=== PATIENT | female | born 1940 | race Caucasian/White ===

== ENCOUNTER → 2016-04-06 | Outpatient (CLI) | payer MEDICARE, BC ==
[~2016-04-06] MED LIST: 00186-0372-20 IH; ACTONEL 35MG TA35 MG PO; ADVAIR 100/28 DISKU1 IH; ALLEGRA 180MG180 MG PO; ALLOPURINOL300 MG PO; ASPIRIN 81M81 MG/TA2 PO; ASTELIN NASAL S34 ML NS; ASTELIN137 MCG/AC NS; CALCIUM 500 W/V1 TAB PO; CEFTIN500 MG PO; CLARITIN 1010 MG/TAB PO; COLACE 100100 MG/CAP PO; DEEP SEA 45 ML45 ML NS; DILAUDID 2MG TAB2 MG PO; DULCOLAX PO; DULERA1 AR1 IH; DURAGESIC50 MCG/PAT TD; FENTANYL 75MCG TD; FENTANYL 75MCG TOP; FOSAMAX 70MG TA70 MG PO; HCTZ 25MG25 MG PO; IPRATROPIUM BROM3 M1 IH; KLONOPIN0.5 MG PO; LASIX40 MG PO; LEXAPRO10 MG PO; LOTENSIN 1010 MG/TAB PO; LOTREL 5 MG-201 CAP PO; MAGNESIUM250 M1 PO; MULTIPLE VITAMI1 CAP PO; NEURONTIN300 MG PO; NEURONTIN600 MG/TAB PO; NEXIUM 40MG40 MG PEG; NUVIGIL50 MG PO; OMEGA 31000 MG PO; POTASSIUM CH2 MEQ/ML PO; PRAVACHOL 20MG20 MG PO; PRAVACHOL40 MG PO; PROVIGIL100 MG PO; REGLAN 10MG10 MG/TAB PO; REGLAN 5MG T5 MG/TAB PO; SALINE NASAL SP45 ML NS; SINGULAIR10 MG PO; TOPROL XL50 MG PO; TYLENOL 325MG325 MG PO; VANIQA 13.9% TP; VITAMIN D31000 IU PO; VITAMINC1000TA PO; ZITHROMAX 250M250 MG PO; [UNRECOGNIZED DRUG - REMARK] TOP
== END ==
LOC: MC.RAD 14:40
DX: Z12.31 Encounter for screening mammogram for malignant neoplasm of breast (principal)

== ENCOUNTER → 2017-04-09 | Outpatient (CLI) | payer MEDICARE, BC | LOC: MC.RAD 15:00 | DX: Z12.31 Encounter for screening mammogram for malignant neoplasm of breast (principal); R92.8 Other abnormal and inconclusive findings on diagnostic imaging of breast ==

== ENCOUNTER → 2017-04-13 | Outpatient (CLI) | payer MEDICARE, BC | LOC: MC.RAD 14:00 | DX: N64.89 Other specified disorders of breast (principal) ==

== ENCOUNTER → 2017-04-18 | Outpatient (CLI) | payer MEDICARE, BC | LOC: MC.RAD 06:50 | DX: N63.20 Unspecified lump in the left breast, unspecified quadrant (principal); R92.0 Mammographic microcalcification found on diagnostic imaging of breast; Z98.82 Breast implant status ==

== ENCOUNTER → 2017-05-15 | Day surgery (SDC) | payer MEDICARE, BC ==
[~2017-05-15] VITALS: Ht 154.9 cm; Wt 103.2 kg
[~2017-05-15] MED LIST changes: +ACTONEL30 MG PO; +AYR BABY SALINE30 ML NS; +BIOTENE ORALBAL42 GM MM; +CALCIUM 600MG+D1 TAB PO; +FENTANYL 50MCG TD; +FIBER CHOICE1 CTB PO; +HCTZ 25MG TAB25 MG PO; +K-DUR20 MEQ PO; +KLONOPIN 0.5MG0.5 MG PO; +LASIX 20MG TABL20 MG PO; +LEXAPRO 10MG10 MG PO; +LOTREL 5/20 CAP1 CAP PO; +MIRALAX PA17 GM/Dose PO; +PRAVACHOL 40MG40 MG PO; +PROVIGIL 100MG100 MG PO; +SALINE 45 ML45 ML NS; +SINGULAIR 110 MG/TAB PO; +SYSTANE GEL EYE10 ML OP; +TOPROL XL 25MG25 MG PO; +TYLENOL 8 HR PO; +VITAMIN C500 MG PO; +VITAMIN D31000 I1 PO; +ZYLOPRIM 300MG300 MG PO
[2017-05-15 10:14] VITALS: BP 114/65; PULSE 91; TEMP 97.8
[2017-05-15 16:31] VITALS: BP 123/64; PULSE 89
[2017-05-15 16:46] VITALS: BP 128/66; PULSE 83
[2017-05-15 17:16] VITALS: BP 116/65; PULSE 90
[2017-05-15 17:31] VITALS: BP 121/84; PULSE 98
[2017-05-15 18:45] VITALS: BP 134/79; PULSE 89; TEMP 97.3
== END ==
LOC: SDCO 06:58
DX: C50.112 Malignant neoplasm of central portion of left female breast (principal); I10 Essential (primary) hypertension; K21.9 Gastro-esophageal reflux disease without esophagitis; H40.9 Unspecified glaucoma; M85.80 Other specified disorders of bone density and structure, unspecified site; G47.30 Sleep apnea, unspecified; M48.00 Spinal stenosis, site unspecified; M79.7 Fibromyalgia; Z88.1 Allergy status to other antibiotic agents; Z88.8 Allergy status to other drugs, medicaments and biological substances; J45.909 Unspecified asthma, uncomplicated; Z96.652 Presence of left artificial knee joint; M62.81 Muscle weakness (generalized); B91 Sequelae of poliomyelitis; M10.9 Gout, unspecified
CPT/HCPCS: A9541; J0690; J1100; J1885; J2405; J2704; J3010; J7120; Q9968

== ENCOUNTER → 2017-06-14 | Outpatient (CLI) | payer MEDICARE, BC ==
[~2017-06-14] MED LIST changes: +BREO IH
== END ==
LOC: COL.VAS 15:09
DX: I25.3 Aneurysm of heart (principal); I34.0 Nonrheumatic mitral (valve) insufficiency; I37.1 Nonrheumatic pulmonary valve insufficiency; I48.2 Chronic atrial fibrillation

== ENCOUNTER → 2017-09-13 | Outpatient (CLI) | payer MEDICARE, BC | LOC: COL.RAD 13:00 | DX: M18.0 Bilateral primary osteoarthritis of first carpometacarpal joints (principal); M25.531 Pain in right wrist | CPT/HCPCS: J3301; Q9967 ==

== ENCOUNTER 2017-09-19 09:07 | Day surgery (SDC) | payer MEDICARE, BC ==
[~2017-09-19] VITALS: Ht 154.9 cm; Wt 103.0 kg
[~2017-09-19 09:07] MED LIST changes: -FENTANYL 50MCG TD; -LASIX 20MG TABL20 MG PO; +LASIX 40MG TABL40 MG PO; -LEXAPRO 10MG10 MG PO; +LEXAPRO20 MG PO
[2017-09-19 09:28] LABS: HEMATOCRIT 42.1 % (37.0-47.0); HEMOGLOBIN 14.3 g/dl (12.5-16.0); MEAN CELL VOLUME 99 fl (80.0-100.0); MEAN CORPUSCULAR HEMOGLOBIN 34 pg (27.0-31.0); MEAN CORPUSCULAR HGB CONC 34 g/dl (33.0-37.0); MEAN PLATELET VOLUME 9.4 fl (7.4-10.4); PLATELET COUNT 182 K/mm3 (130-400); RED BLOOD COUNT 4.25 M/mm3 (4.10-5.30); REDCELL DISTRIBUTION WIDTH-CV 13.4 % (11.5-14.5)
[2017-09-19 09:39] LABS: PROTHROMBIN TIME 22.9 SECONDS (9.7-12.8)
[2017-09-19 09:57] LABS: CALCIUM 9.4 mg/dL (8.4-10.2); CREATININE, serum 0.72 mg/dL (0.52-1.25); POTASSIUM 4.2 mmol/L (3.4-5.0)
[2017-09-19] MEDS ORDERED: XARELTO20 MG PO (10:08)
[2017-09-19] MEDS ORDERED: ZYLOPRIM 300MG300 MG PO (10:14)
[2017-09-19 10:50] VITALS: BP 106/61; PULSE 46
[2017-09-19 11:05] VITALS: BP 108/60; PULSE 45
[2017-09-19] MEDS ORDERED: TOPROL XL 25MG25 MG PO (11:05)
[2017-09-19 11:20] VITALS: BP 107/58; PULSE 43
[2017-09-19 11:35] VITALS: BP 113/59; PULSE 42
[2017-09-19 12:00] VITALS: BP 101/58; PULSE 43
== END 2017-09-19 12:35 | disposition home or self-care (01) ==
LOC: COL.CAR 09:07
PROVIDERS: Internal Medicine Cardiovascular Disease
DX: I48.0 Paroxysmal atrial fibrillation (principal); I10 Essential (primary) hypertension; K21.9 Gastro-esophageal reflux disease without esophagitis; G47.33 Obstructive sleep apnea (adult) (pediatric); J45.909 Unspecified asthma, uncomplicated; M19.90 Unspecified osteoarthritis, unspecified site; M79.7 Fibromyalgia; G89.29 Other chronic pain; Z88.1 Allergy status to other antibiotic agents; Z85.3 Personal history of malignant neoplasm of breast
CPT/HCPCS: J2704; J3010; J7030

== ENCOUNTER 2017-10-05 07:01 | Day surgery (SDC) | payer MEDICARE, BC ==
[2017-10-05] VITALS (13 sets, daily range): BP systolic 113–146; BP diastolic 58–105; PULSE 75–93; TEMP 97.5
[~2017-10-05] VITALS: Ht 155 cm; Wt 102.2 kg
[~2017-10-05 07:01] MED LIST changes: +XARELTO20 MG PO
[2017-10-05 08:16] LABS: HEMATOCRIT 41.8 % (37.0-47.0); HEMOGLOBIN 13.8 g/dl (12.5-16.0); MEAN CELL VOLUME 103 fl (80.0-100.0); MEAN CORPUSCULAR HEMOGLOBIN 34 pg (27.0-31.0); MEAN CORPUSCULAR HGB CONC 33 g/dl (33.0-37.0); MEAN PLATELET VOLUME 9.8 fl (7.4-10.4); PLATELET COUNT 178 K/mm3 (130-400); RED BLOOD COUNT 4.07 M/mm3 (4.10-5.30); REDCELL DISTRIBUTION WIDTH-CV 13.1 % (11.5-14.5)
[2017-10-05 08:20] LABS: INR 1.1 (0.8-3.0); PROTHROMBIN TIME 12.7 SECONDS (9.7-12.8)
[2017-10-05 08:26] LABS: CALCIUM 9.4 mg/dL (8.4-10.2); CREATININE, serum 0.79 mg/dL (0.52-1.25); POTASSIUM 3.8 mmol/L (3.4-5.0)
[2017-10-05] MEDS ORDERED: TOPROL XL 25MG25 MG PO (08:59)
[2017-10-05] MEDS ORDERED: ASPIRIN 81M81 MG/TA2 PO (09:10)
[2017-10-05] MEDS ORDERED: ARIMIDEX1 MG PO (09:11)
== END 2017-10-05 16:30 | disposition home or self-care (01) ==
LOC: COL.CAR 07:01
PROVIDERS: Internal Medicine Cardiovascular Disease
DX: I25.10 Atherosclerotic heart disease of native coronary artery without angina pectoris (principal); I48.0 Paroxysmal atrial fibrillation; I48.91 Unspecified atrial fibrillation; Z79.899 Other long term (current) drug therapy; I10 Essential (primary) hypertension; I08.1 Rheumatic disorders of both mitral and tricuspid valves; G47.33 Obstructive sleep apnea (adult) (pediatric); Z92.3 Personal history of irradiation; Z79.01 Long term (current) use of anticoagulants; Z79.82 Long term (current) use of aspirin; Z85.3 Personal history of malignant neoplasm of breast
CPT/HCPCS: J1644; J2250; J3010; Q9967

== ENCOUNTER 2017-11-13 07:05 | Day surgery (SDC) | payer MEDICARE, BC ==
[~2017-11-13] VITALS: Ht 155 cm; Wt 102.9 kg
[~2017-11-13 07:05] MED LIST changes: +ARIMIDEX1 MG PO
[2017-11-13 07:50] VITALS: BP 129/88; PULSE 82; TEMP 98
[2017-11-13 07:52] LABS: HEMATOCRIT 39.8 % (37.0-47.0); MEAN CELL VOLUME 102 fl (80.0-100.0); MEAN CORPUSCULAR HEMOGLOBIN 33 pg (27.0-31.0); MEAN CORPUSCULAR HGB CONC 33 g/dl (33.0-37.0); MEAN PLATELET VOLUME 9.3 fl (7.4-10.4); PLATELET COUNT 178 K/mm3 (130-400); RED BLOOD COUNT 3.91 M/mm3 (4.10-5.30); REDCELL DISTRIBUTION WIDTH-CV 13.3 % (11.5-14.5)
[2017-11-13 07:55] LABS: INR 3.5 (0.8-3.0); PROTHROMBIN TIME 39.3 SECONDS (9.7-12.8)
[2017-11-13 08:01] LABS: CALCIUM 9.2 mg/dL (8.4-10.2); CREATININE, serum 0.72 mg/dL (0.52-1.25); POTASSIUM 3.7 mmol/L (3.4-5.0)
[2017-11-13] MEDS ORDERED: TAMBOCOR50 MG PO (09:14)
[2017-11-13 09:30] VITALS: BP 120/68; PULSE 59; TEMP 98.4
[2017-11-13 09:53] VITALS: BP 118/62; PULSE 62; TEMP 98.4
== END 2017-11-13 11:00 | disposition home or self-care (01) ==
LOC: COL.CAR 07:05
PROVIDERS: Internal Medicine Cardiovascular Disease
DX: I48.91 Unspecified atrial fibrillation (principal); I10 Essential (primary) hypertension; K21.9 Gastro-esophageal reflux disease without esophagitis; G47.33 Obstructive sleep apnea (adult) (pediatric); I25.10 Atherosclerotic heart disease of native coronary artery without angina pectoris; J45.909 Unspecified asthma, uncomplicated; G89.29 Other chronic pain; M79.7 Fibromyalgia; F32.9 Major depressive disorder, single episode, unspecified; Z79.01 Long term (current) use of anticoagulants; Z96.652 Presence of left artificial knee joint; Z85.3 Personal history of malignant neoplasm of breast; Z82.49 Family history of ischemic heart disease and other diseases of the circulatory system; Z82.62 Family history of osteoporosis
CPT/HCPCS: J2704

== ENCOUNTER → 2018-02-21 | Outpatient (CLI) | payer MEDICARE, BC ==
[~2018-02-21] MED LIST changes: +TAMBOCOR50 MG PO
== END ==
LOC: COL.RAD 08:00
DX: M79.644 Pain in right finger(s) (principal)
CPT/HCPCS: J3301; Q9967

== ENCOUNTER 2018-04-16 12:34 | Inpatient (IN) | payer MEDICARE, BC ==
[~2018-04-16] VITALS: Ht 154.9 cm; Wt 98.1 kg
[2018-04-16 13:02] LABS: BASO % 0.3 % (0.0-2.0); EOS % 0.1 % (0-4.0); GRAN # 6.4 (1.4-6.5); GRAN % 79.7 % (42.2-75.2); HEMOGLOBIN 13.9 g/dl (12.5-16.0); LYMPH # 0.7 (1.2-3.4); LYMPH % 8.8 % (20.0-51.0); MEAN CELL VOLUME 101 fl (80.0-100.0); MEAN CORPUSCULAR HEMOGLOBIN 33 pg (27.0-31.0); MEAN CORPUSCULAR HGB CONC 33 g/dl (33.0-37.0); MEAN PLATELET VOLUME 9.7 fl (7.4-10.4); MONO # 0.9 (0.1-0.6); MONO % 10.7 % (1.7-9.3); PLATELET COUNT 137 K/mm3 (130-400); RED BLOOD COUNT 4.18 M/mm3 (4.10-5.30); REDCELL DISTRIBUTION WIDTH-CV 13.3 % (11.5-14.5)
[2018-04-16 13:13] LABS: ARTERIAL BLD GAS O2 SATURATION 91.8 % (92-100); ARTERIAL BLD GAS TCO2 CT 29.7; ARTERIAL BLOOD GAS BASE EXCESS 4.4 (-2-2); ARTERIAL BLOOD GAS HCO3 28.5 meq/L (22-26); ARTERIAL BLOOD GAS PCO2 40.4 mmHg (35-45); ARTERIAL BLOOD GAS PO2 62.1 mmHg (80-100); ARTERIAL BLOOD GAS pH 7.47 (7.35-7.45)
[2018-04-16 13:17] LABS: ALBUMIN 4.1 gm/dL (3.5-5.0); BILIRUBIN,TOTAL 0.7 mg/dL (0.0-1.0); CALCIUM 9.2 mg/dL (8.4-10.2); CREATININE, serum 0.77 mg/dL (0.52-1.25); POTASSIUM 3.4 mmol/L (3.4-5.0); TOTAL PROTEIN 7.5 gm/dL (6.4-8.2)
[2018-04-16 13:27] LABS: COLLECTION METHOD CLEAN CATCH
[2018-04-16 13:35] LABS: MUCOUS Present /lpf; PH 7 (5-8); SQUAMOUS EPITHELIAL 0-2 /hpf; URINE APPEARANCE Clear; URINE BACTERIA None Seen /hpf; URINE BILIRUBIN Negative (NEGATIVE); URINE BLOOD 2+ (NEGATIVE); URINE COLOR Yellow; URINE GLUCOSE Negative (NEGATIVE); URINE KETONE Trace (NEGATIVE); URINE LEUKOCYTE ESTERASE Negative (NEGATIVE); URINE NITRATE Negative (NEGATIVE); URINE PROTEIN(semi-quant) Negative (NEGATIVE); URINE RBC >50 /hpf; URINE UROBILINOGEN Negative (NEGATIVE)
[2018-04-16] MEDS ORDERED: PRIL40 PO (13:38)
--- NOTE | 2018-04-16 15:45 | NUR ---
Reported pt on BiPap dependent from RN and respiratory therapist Patience while in the ED. Arrived on 4L NC, SpO2:93-95%, and son escorted to waiting room, pt transvered via slideboard unable to assist in transfer. Pt alert to speech, oriented to:person, , family members present, location (hospital/ICU), [place], [place]; disoriented to time of day/month/year - answers that were answered correctly required extended period of time to answer - pt would drift off to sleep until restimulated with voiced repeated question. BiPap reapplied and previous settings per MD Emerita's order with RT present. and son now bedside, Droplet precuations/hand hygeine educated, verbally agrees to precautions, family are good historians of past medical history. Call light within reach, denies needs at this time
[2018-04-16 15:56] VITALS: BP 107/47; PULSE 57; TEMP 99.6
[2018-04-16 16:00] VITALS: BP 114/44; PULSE 48; TEMP 99.5
--- NOTE | 2018-04-16 17:39 | NUR ---
Pt able to consume crushed meds in applesauce without difficulty. Pt stating hunger, soup and crackers requested and ordered. Call light within reach. and son have departed.
--- NOTE | 2018-04-16 19:50 | NUR ---
Pt unable to stay awake falling asleep when asked "what year is it", "where are you", "what town are you in", "what state do you live in". Pt will open eyes to name is called, but immediately falls asleep again. Pt not able to eat due to inability to stay awake.
[2018-04-16 20:00] VITALS: BP 109/47; PULSE 47; TEMP 101
--- NOTE | 2018-04-16 22:50 | NUR ---
CONTACTED RT FOR EKG DUE AT 2736. SPOKE WITH RT NIK.
[2018-04-17] VITALS: BP 101/50; PULSE 87; TEMP 99.8
--- NOTE | 2018-04-17 02:15 | NUR ---
PT IS MORE QUICK TO ANSWER QUESTIONS. PT ABLE TO STATE LOCATION, PRESIDENT, & YEAR CORRECTLY, BUT TOOK THREE TRIES TO STATE THE CURRENT MONTH.
[2018-04-17 04:00] VITALS: BP 97/47; PULSE 53; TEMP 99.6
--- NOTE | 2018-04-17 05:50 | NUR ---
PT ALERT AND ORIENTED. PT NOT FALLING ASLEEP WHEN ASKED QUESTIONS AND ANSWERS ALL QUESTIONS SWIFTLY AND CORRECT.
[2018-04-17 06:44] LABS: BASO % 0.3 % (0.0-2.0); GRAN # 9.5 (1.4-6.5); GRAN % 81.5 % (42.2-75.2); HEMATOCRIT 38.2 % (37.0-47.0); HEMOGLOBIN 12.5 g/dl (12.5-16.0); LYMPH % 8.9 % (20.0-51.0); MEAN CELL VOLUME 103 fl (80.0-100.0); MEAN CORPUSCULAR HEMOGLOBIN 34 pg (27.0-31.0); MEAN CORPUSCULAR HGB CONC 33 g/dl (33.0-37.0); MEAN PLATELET VOLUME 10.2 fl (7.4-10.4); MONO % 8.6 % (1.7-9.3); PLATELET COUNT 114 K/mm3 (130-400); RED BLOOD COUNT 3.71 M/mm3 (4.10-5.30)
[2018-04-17 07:05] LABS: ALBUMIN 3.3 gm/dL (3.5-5.0); BILIRUBIN,TOTAL 0.7 mg/dL (0.0-1.0); CALCIUM 7.9 mg/dL (8.4-10.2); CREATININE, serum 1.14 mg/dL (0.52-1.25); POTASSIUM 3.4 mmol/L (3.4-5.0); TOTAL PROTEIN 6.1 gm/dL (6.4-8.2)
[2018-04-17 08:00] VITALS: BP 132/61; PULSE 81; TEMP 98.5
--- NOTE | 2018-04-17 09:17 | NUR ---
Pt AAOx4, much more alert than yesterday afternoon. Poli () called in - updated - will be here to visit around [id number]. Call light within reach, no complaints at this time. Builder Beam in room to assess pt
--- NOTE | 2018-04-17 09:58 | NUR ---
MANDEEP met with the patient to discuss discharge plan. The patient lives in [place] with her , Poli. She reports independence with ADLs and does not use any ambulatory devices. She states having nocturnal oxygen and a CPAP through [facility]. The patient's PCP is Dr. Jeff Gordon and she receives her medications at [facility]. She reports no difficulties obtaining her meds. PT/OT to be ordered. SW to continue to follow.
[2018-04-17 12:00] VITALS: BP 124/55; PULSE 99; TEMP 98.8
[2018-04-17 16:00] VITALS: BP 119/64; PULSE 101; TEMP 100.1
[2018-04-17 18:16] VITALS: TEMP 99.5
--- NOTE | 2018-04-17 20:30 | NUR ---
PT HAS SWELLING IN RIGHT HAND ALONG WITH BRUISING AT WRIST AND BACK OF HAND. BRUISING APPEARS TO BE FROM VENOUS PUNCTURES.
[2018-04-18] VITALS: BP 115/56; PULSE 74; TEMP 100.1
[2018-04-18 04:00] VITALS: BP 99/41; PULSE 62; TEMP 98.5
[2018-04-18 07:01] LABS: BASO % 0.2 % (0.0-2.0); EOS # 0.1 (0.0-0.7); EOS % 0.7 % (0-4.0); GRAN # 7.3 (1.4-6.5); GRAN % 81.4 % (42.2-75.2); HEMATOCRIT 32.4 % (37.0-47.0); HEMOGLOBIN 10.6 g/dl (12.5-16.0); LYMPH # 0.8 (1.2-3.4); LYMPH % 9.1 % (20.0-51.0); MEAN CELL VOLUME 104 fl (80.0-100.0); MEAN CORPUSCULAR HEMOGLOBIN 34 pg (27.0-31.0); MEAN CORPUSCULAR HGB CONC 33 g/dl (33.0-37.0); MONO # 0.7 (0.1-0.6); MONO % 8.2 % (1.7-9.3); PLATELET COUNT 102 K/mm3 (130-400); RED BLOOD COUNT 3.13 M/mm3 (4.10-5.30)
[2018-04-18 07:51] LABS: CALCIUM 7.9 mg/dL (8.4-10.2); CREATININE, serum 0.76 mg/dL (0.52-1.25); POTASSIUM 3.8 mmol/L (3.4-5.0)
[2018-04-18 08:00] VITALS: BP 135/80; PULSE 69; TEMP 99.2
--- NOTE | 2018-04-18 10:18 | NUR ---
The patient is to be transferred up to the floor today, 04/18. PT/OT are now in working with the patient. SW to continue to follow.
[2018-04-18 12:00] VITALS: BP 135/80; PULSE 69; TEMP 99.2
--- NOTE | 2018-04-18 14:35 | NUR ---
Report given to LYDIA Luciano
--- NOTE | 2018-04-18 16:22 | NUR ---
Patient arrived to floor at 1535 via wheelchair from ICU. Pt assisted to bathroom after arrival attempting to have a bowel movement. Did have small firm movement. Stark is draining dependently clear yellow urine. Heart is regular. Patient is alert and orientated, is at bedside. Lungs are noted to be coarse in the bilateral bases, does have expiratory wheezes to the upper lobes. Patient has scattered bruising noted to upper and lower extremities. Is noted to have a fentanyl patch to the right shoulder. Patient verbalizes she is tired. NS started at 75ml/hr. Call light, menu and phone is in reach.
[2018-04-18 16:30] VITALS: BP 138/75; PULSE 78; TEMP 98.9
--- NOTE | 2018-04-18 19:02 | NUR ---
Report received from LYDIA Hernandez. Denies needs. Eating dinner. Call light in reach.
[2018-04-18 19:47] VITALS: BP 136/57; PULSE 66; TEMP 98.2
--- NOTE | 2018-04-18 20:53 | NUR ---
Resting in bed with visitor at bedside. Assessment complete. Bilateral lower lobe crackles. Left upper lobe diminished. Right upper lobe clear. Heart sounds normal. Bowels active x4. Bilateral lower leg edema +1. SCD in place. IV in right AC positional. Wrapped and resting on pillow. NS at 75ml/hr infusing. Stark draining clear yellow urine. Free of kinks. Denies any pain. Denies needs at this time. Call light in reach.
--- NOTE | 2018-04-18 22:36 | NUR ---
Repositioned patient. Denies other needs at this time. Call light in reach.
[2018-04-19 00:21] VITALS: BP 141/71; PULSE 56; TEMP 97.5
--- NOTE | 2018-04-19 00:40 | NUR ---
Resting in bed. Denies needs. Call light in reach.
--- NOTE | 2018-04-19 03:30 | NUR ---
Resting in bed. Denies needs. call light in reach.
[2018-04-19 04:32] VITALS: BP 143/63; PULSE 57; TEMP 97.4
--- NOTE | 2018-04-19 06:19 | NUR ---
Uneventful night. Refused repositioning from side to side throughout night. Patient requested to be "pulled up" throughout night but remain flat. Resting in bed this AM. Denies any pain. Denies needs. Call light in reach.
[2018-04-19 07:05] VITALS: BP 146/62; PULSE 59; TEMP 97.3
--- NOTE | 2018-04-19 07:22 | NUR ---
Report given to LYDIA Belcher
[2018-04-19 07:24] LABS: BASO % 0.2 % (0.0-2.0); GRAN # 3.9 (1.4-6.5); GRAN % 80.5 % (42.2-75.2); HEMOGLOBIN 11.2 g/dl (12.5-16.0); LYMPH # 0.5 (1.2-3.4); LYMPH % 9.8 % (20.0-51.0); MEAN CELL VOLUME 103 fl (80.0-100.0); MEAN CORPUSCULAR HEMOGLOBIN 33 pg (27.0-31.0); MEAN CORPUSCULAR HGB CONC 32 g/dl (33.0-37.0); MEAN PLATELET VOLUME 9.9 fl (7.4-10.4); MONO # 0.4 (0.1-0.6); MONO % 9.1 % (1.7-9.3); PLATELET COUNT 97 K/mm3 (130-400); RED BLOOD COUNT 3.38 M/mm3 (4.10-5.30); REDCELL DISTRIBUTION WIDTH-CV 13.1 % (11.5-14.5)
[2018-04-19 07:37] LABS: CALCIUM 8.4 mg/dL (8.4-10.2); CREATININE, serum 0.51 mg/dL (0.52-1.25); MAGNESIUM 2.3 mg/dL (1.6-2.3); POTASSIUM 4.7 mmol/L (3.4-5.0)
[2018-04-19 07:54] LABS: HEMATOCRIT 34.8 % (37.0-47.0)
[2018-04-19 11:06] VITALS: BP 153/57; PULSE 58; TEMP 98.1
--- NOTE | 2018-04-19 11:17 | NUR ---
DISCUSSED WITH PATIENT POSSIBILITY OF D/C'ING PINTO CATHETER TO MINIMIZE RISK OF UTI. PT REQUESTS TO KEEP PINTO IN AT THIS TIME D/T PERSISTENT COUGHING CAUSING HER STRESS INCONTINENCE. AGREEABLE TO PLAN, I TOLD PATIENT WE WILL READDRESS LATER THIS EVENING.
--- NOTE | 2018-04-19 12:10 | NUR ---
PT BEING TRANSPORTED FOR CT VIA WHEELCHAIR BY AUTOMATIC PATTERN EDGER.
--- NOTE | 2018-04-19 14:03 | NUR ---
PT LYING IN BED, AT BEDSIDE. PT DENIES ANY NEEDS AT THIS TIME.
--- NOTE | 2018-04-19 15:47 | NUR ---
URINE IN PINTO CATHETER APPEARS SLIGHTLY PINK TINGED. PT THINKS SHE MAY HAVE IRRITATED THE CATHETER WHILE SHE WAS WASHING HER SAMIA AREA EARLIER TODAY.
[2018-04-19 16:35] VITALS: BP 166/60; PULSE 77; TEMP 98.4
--- NOTE | 2018-04-19 18:18 | NUR ---
Since this RN assumed pt care two hours ago, she has remained free of complaints, denies pain and SOB, oxygen remains at 2 L via NC, she ate a hearty dinner, call andree casillas visitor at bedside
--- NOTE | 2018-04-19 19:04 | NUR ---
INCREASE OXYGEN TO 2.5L NC DUE TO SATS <92%.
--- NOTE | 2018-04-19 19:05 | NUR ---
Report given to mercy FREEMAN, RT at pt bedside
[2018-04-19 19:27] VITALS: BP 148/51; PULSE 70; TEMP 98.5
--- NOTE | 2018-04-19 22:03 | NUR ---
Patient assessed at this time. Denies having pain and discomfort. LS wheezes in upper lobes, diminished in lower lobes. Denies having SOB and dyspnea. Respirations even and unlabored. On oxygen at 2 L/min via NC. Reports occasional cough with sputum production, but unable to observe sputum at this time. Assisted to the bathroom with one assist with use of gait belt. Gait steady. Voices no needs or concerns at this time. In bed at this time. Call light is within reach.
[2018-04-20] VITALS (7 sets, daily range): BP systolic 152–180; BP diastolic 59–83; PULSE 61–75; TEMP 98.2–98.8
--- NOTE | 2018-04-20 02:54 | NUR ---
Patient has denied pain and discomfort so far this shift. Did request that oxygen be increased when she put on her CPAP. Had been on oxygen at 2 L/min via NC, but reported that with her CPAP, she usually has oxygen supplemented at 4 L/min into CPAP. This nurse called and spoke with RT, and agreed that oxygen could be increased, and stated she would be in to see patient shortly afterwards. Patient resting in bed with eyes closed at this time. Call light is within reach.
--- NOTE | 2018-04-20 06:03 | NUR ---
Continues to have hematuria. Denies having flank and suprapubic pain and discomfort. Indwelling ying catheter patent. Securement device in place to right inner thigh. Draining via dependent drainage. Has been wearing CPAP tonight with 4 L/min of oxygen supplemented into it. Denies having SOB and dyspnea. Denies having any needs or concerns at this time. Call light is within reach. Continues on droplet precautions.
--- NOTE | 2018-04-20 07:17 | NUR ---
Report given to on-coming nurse.
[2018-04-20 08:11] LABS: HEMOGLOBIN 11.2 g/dl (12.5-16.0); MEAN CELL VOLUME 103 fl (80.0-100.0); MEAN CORPUSCULAR HEMOGLOBIN 33 pg (27.0-31.0); MEAN CORPUSCULAR HGB CONC 32 g/dl (33.0-37.0); MEAN PLATELET VOLUME 10.9 fl (7.4-10.4); PLATELET COUNT 120 K/mm3 (130-400)
[2018-04-20 08:13] LABS: HEMATOCRIT 34.9 % (37.0-47.0)
--- NOTE | 2018-04-20 08:30 | NUR ---
Assessment complete. Pt is AXO X3, denies having any pain at this time. Breathing is even but labored after repositioning in the bed on 2L via NC. Tele on. RA INT flushes easily, remains free of complications, and is CDI. Stark is draining red-tinged urine to DD. Pt is sitting up in the bed ordering breakfast at this time and she denies further needs. Call light within reach, will continue to monitor.
[2018-04-20 08:32] LABS: CALCIUM 8.7 mg/dL (8.4-10.2); CREATININE, serum 0.55 mg/dL (0.52-1.25)
[2018-04-20 09:51] LABS: BAND 3 % (0-10); BASOPHIL 1 % (0-2); LYMPHOCYTE 23 % (20.0-51.0); NEUTROPHILS 72 % (42.0-75.2); PLATELET ESTIMATE NORMAL (NORMAL)
--- NOTE | 2018-04-20 19:27 | NUR ---
Pt has been resting on and off throughout the day. She has remained free of pain. Pt is sitting up in the bed watching TV at this time and she denies further needs. Call light within reach. Report given to LYDIA Weber.
[2018-04-21] VITALS (502 sets, daily range): BP systolic 116–153; BP diastolic 55–65; PULSE 55–79; TEMP 97.8–98.4; O2SAT 83–97
--- NOTE | 2018-04-21 00:33 | NUR ---
Patient denies having pain and discomfort. LS CTA in upper lobes, diminished in lower lobes. Continues to have occasional cough, unable to produce any sputum. On oxygen at 5 L/min via NC. Wears CPAP at night. Denies having SOB and dyspnea, except with exertion. Indwelling ying catheter patent, and drainaing pink tinged, clear urine via dependent drainage. Voices no needs or concerns at this time. Resting in bed with eyes closed. Call light is within reach.
--- NOTE | 2018-04-21 05:03 | NUR ---
Voices no needs or concerns at this time. Denies having pain and discomfort. Resting in bed with eyes closed, and call light within reach. Denies having SOB and dyspnea. Has been wearing CPAP tonight.
--- NOTE | 2018-04-21 07:14 | NUR ---
Report given to next shift.
--- NOTE | 2018-04-21 09:30 | NUR ---
Assessment complete. Pt is AXO X3, denies having any pain at this time. Upon entering the room the pt states she feels SOB. O2 is 83% on 5L via NC. Luisa RT, called and at the bedside. Pt placed on high flow NC on 12L and O2 is 88%. Dr. Constantino notified and stated to place the pt on a BiPAP. Dr. Cuevas at the bedside. Stark is draining peach colored urine. Tele on. RA INT flushes easily, remains free of complications, and is CDI. Pt states she is feeling better after BiPAP is placed. Will continue to monitor.
[2018-04-21 10:17] LABS: ARTERIAL BLD GAS O2 SATURATION 92.4 % (92-100); ARTERIAL BLD GAS TCO2 CT 31.9; ARTERIAL BLOOD GAS BASE EXCESS 6.4 (-2-2); ARTERIAL BLOOD GAS HCO3 30.6 meq/L (22-26); ARTERIAL BLOOD GAS PCO2 42.2 mmHg (35-45); ARTERIAL BLOOD GAS PO2 64.1 mmHg (80-100); ARTERIAL BLOOD GAS pH 7.48 (7.35-7.45)
--- NOTE | 2018-04-21 11:30 | NUR ---
Dr. Constantino and Dr. Cuevas would like the pt to be transferred to the ICU. material handling crew supervisor notified and ICU 04 bed assigned.
--- NOTE | 2018-04-21 13:20 | NUR ---
PATIENT ARRIVED TO ICU ROOM 4 VIA BED FROM THE MEDICAL UNIT. SHE WAS SATURATED WITH URINE. PATIENT WAS CLEANED UP AND PLACED IN A NEW GOWN. HER VS ARE STABLE. SHE IS CURRENTLY ON BIPAP AT THIS TIME.
--- NOTE | 2018-04-21 13:39 | NUR ---
Pt transferred to ICU 04 via bed at this time. Report given to LYDIA Robertson.
--- NOTE | 2018-04-21 17:42 | NUR ---
PATIENT NOT TOLERATING BEING OFF OF BIPAP FOR EVEN A SHORT AMOUNT OF TIME. SHE IS CURRENTLY ON 14L OXYMASK AND SATURATIONS ARE 88%.
[2018-04-22] VITALS (778 sets, daily range): BP systolic 120–164; BP diastolic 53–78; PULSE 46–84; TEMP 98–98.6; O2SAT 67–100
[2018-04-22 05:30] LABS: HEMOGLOBIN 11.1 g/dl (12.5-16.0); MEAN CELL VOLUME 102 fl (80.0-100.0); MEAN CORPUSCULAR HEMOGLOBIN 33 pg (27.0-31.0); MEAN CORPUSCULAR HGB CONC 33 g/dl (33.0-37.0); PLATELET COUNT 154 K/mm3 (130-400); RED BLOOD COUNT 3.34 M/mm3 (4.10-5.30)
[2018-04-22 05:51] LABS: HEMATOCRIT 34.1 % (37.0-47.0)
[2018-04-22 07:23] LABS: BAND 12 % (0-10); EOSINOPHIL 1 % (0-4); LYMPHOCYTE 14 % (20.0-51.0); NEUTROPHILS 65 % (42.0-75.2)
--- NOTE | 2018-04-22 07:23 | NUR ---
RECEIVED REPORT FROM LYDIA MEADOWS. PATIENT WAS RESTING IN BED. MEDICATIONS AND LABS VARIFIED.
[2018-04-22 07:24] LABS: PLATELET ESTIMATE NORMAL (NORMAL)
[2018-04-22 07:25] LABS: CALCIUM 8.6 mg/dL (8.4-10.2); CREATININE, serum 0.63 mg/dL (0.52-1.25); POTASSIUM 3.1 mmol/L (3.4-5.0)
[2018-04-22 07:25] LABS: HYPOCHROMIA 1+
--- NOTE | 2018-04-22 13:51 | NUR ---
MANDEEP and SW student attended clinical rounding. talked with patient about getting up with PT/OT. She reports that she does well at home prior to this and lives with her . said PT and OT will come work with her tomorrow to evaluate patients discharge needs. MANDEEP will continue to follow.
--- NOTE | 2018-04-22 19:25 | NUR ---
GAVE REPORT TO LYDIA MEADOWS.
--- NOTE | 2018-04-22 19:38 | NUR ---
PT HAS TOLERATED THE HIH FLOW NASAL CANNULA ALL SHIFT. PT HAS BEEN WEANED FROM 12-8L AT THIS TIME FOR SPO2 >92%. WILL CONTNUE TO WEAN TOLERATED.
--- NOTE | 2018-04-22 20:30 | NUR ---
PT ON 8L HI-ANSELMO NC SP02 AT 95%. CHANGED SPO2 PROBE TO FOREHEAD MONITOR AND READING INCREASED TO 99%. PT IS A&O X3, DENIES PAIN AT THIS TIME. THERE IS INTERMITTENT LEAKING OF URINE AROUND THE PINTO CATHETER, BUT LEAKING INEVEITYABLY OCCURS WHEN THE PT COUGHS. RIGHT ARM IS NOTICABLY SWOLLEN MORE THAN THE LEFT ARM AND HAS MULITPLE BRUISES. PT C/O WRIST IRRITATION FROM FOREARM BP CUFF. BANDAIDE PLACED ON WRIST FOR COMFORT TO PREVENT RUBBING/IRRIATION. FENTENYL PATCH ON PTS RIGHT LOWER BACK, DATED 04/21.
[2018-04-23] VITALS (1089 sets, daily range): BP systolic 119–150; BP diastolic 55–76; PULSE 56–68; TEMP 98–98.6; O2SAT 58–100
--- NOTE | 2018-04-23 04:05 | NUR ---
LEFT LUNG SOUNDS ABSENT IN BASE AND ONLY AUDIBLE ON EXHALATION IN LEFT UPPER LOBE. HOSPITALIST RONEL NOTIFIED - BREATHING TREATMENT ORDERED.
[2018-04-23 06:07] LABS: HEMOGLOBIN 11.7 g/dl (12.5-16.0); MEAN CELL VOLUME 102 fl (80.0-100.0); MEAN CORPUSCULAR HEMOGLOBIN 34 pg (27.0-31.0); MEAN CORPUSCULAR HGB CONC 33 g/dl (33.0-37.0); MEAN PLATELET VOLUME 10.9 fl (7.4-10.4); PLATELET COUNT 196 K/mm3 (130-400); RED BLOOD COUNT 3.48 M/mm3 (4.10-5.30)
[2018-04-23 06:10] LABS: HEMATOCRIT 35.5 % (37.0-47.0)
[2018-04-23 06:16] LABS: CALCIUM 8.9 mg/dL (8.4-10.2); CREATININE, serum 0.66 mg/dL (0.52-1.25); MAGNESIUM 1.8 mg/dL (1.6-2.3); POTASSIUM 3.4 mmol/L (3.4-5.0)
--- NOTE | 2018-04-23 08:00 | NUR ---
PATIENT SLEEPING IN BED. SHE IS CURRENTLY ON 8L HIGH FLOW NASAL CANNULA. SHE WILL WAKE UP AND TALK TO YOU HOWEVER, SHE STATES SHE IS VERY SLEEPY AND WOULD LIKE TO SLEEP LONGER PRIOR TO EATING BREAKFAST. ASSESSMENT WAS COMPLETED. SHE DENIES ANY FURTHER REQUESTS AT THIS TIME.
--- NOTE | 2018-04-23 09:10 | NUR ---
Reviewed this am chest x ray with PICC tip location in upper right atrium. According to primary care nurse, there is difficulty with obtaining lab. with sterile technique right upper arm PICC dressing change done with insertion site cleansed with chloraprep x 1, catheter pulled back 2 cm to 1 cm marking on catheter. skin prep, chlorhexidine impregnated disk applied, stat lock, and tegaderm applied. PICC flushed with 10ml normal saline with good blood return noted. re-wrapped with mague to protect catheter. RN informed. will continue to monitor.
[2018-04-23] MEDS ORDERED: TAMBOCOR50 MG PO (09:43)
[2018-04-23 09:51] LABS: BAND 9 % (0-10); EOSINOPHIL 2 % (0-4); LYMPHOCYTE 18 % (20.0-51.0); MYELOCYTE 1 % (0-0); NEUTROPHILS 55 % (42.0-75.2)
[2018-04-23 09:55] LABS: PLATELET ESTIMATE NORMAL (NORMAL)
--- NOTE | 2018-04-23 12:04 | NUR ---
First visit from the business analytics analyst. prayed with patient. No other needs right now.
--- NOTE | 2018-04-23 15:00 | NUR ---
PATIENT WAS ABLE TO GET UP AND SIT IN THE RECLINER FOR SEVERAL HOURS TODAY. SHE DID VERY WELL UP. SHE WAS JUST A STANDBY ASSIST WITH VERY MINIMAL HELP.
--- NOTE | 2018-04-23 16:02 | NUR ---
SW discussed patient with nurse. She reports she is up and around in the room and is doing her own ADLs. Patients is also attentive. PT has not had a note in today. SW will continue to follow but anticipate patient dc home with family support.
--- NOTE | 2018-04-23 19:11 | NUR ---
REPORT GIVEN TO LYDIA MEADOWS.
[2018-04-24] VITALS (837 sets, daily range): BP systolic 123–147; BP diastolic 54–85; PULSE 45–97; TEMP 97.7–99.2; O2SAT 67–100
[2018-04-24 06:07] LABS: HEMOGLOBIN 11.4 g/dl (12.5-16.0); MEAN CELL VOLUME 102 fl (80.0-100.0); MEAN CORPUSCULAR HEMOGLOBIN 33 pg (27.0-31.0); MEAN CORPUSCULAR HGB CONC 32 g/dl (33.0-37.0); MEAN PLATELET VOLUME 10.6 fl (7.4-10.4); PLATELET COUNT 207 K/mm3 (130-400); RED BLOOD COUNT 3.44 M/mm3 (4.10-5.30); REDCELL DISTRIBUTION WIDTH-CV 13.2 % (11.5-14.5)
[2018-04-24 06:12] LABS: HEMATOCRIT 35.2 % (37.0-47.0)
[2018-04-24 06:45] LABS: CALCIUM 8.8 mg/dL (8.4-10.2); CREATININE, serum 0.72 mg/dL (0.52-1.25); POTASSIUM 3.4 mmol/L (3.4-5.0)
--- NOTE | 2018-04-24 07:10 | NUR ---
Bedside report received from LYDIA Sparks.
--- NOTE | 2018-04-24 08:45 | NUR ---
Assessment complete, patient resting in bed, performing AM care, denies needs at this time, call light within reach.
[2018-04-24 10:01] LABS: BAND 12 % (0-10); EOSINOPHIL 2 % (0-4); LYMPHOCYTE 18 % (20.0-51.0); NEUTROPHILS 61 % (42.0-75.2); PLATELET ESTIMATE NORMAL (NORMAL)
[2018-04-24 10:02] LABS: HYPOCHROMIA 1+
--- NOTE | 2018-04-24 12:52 | NUR ---
MANDEEP met with patient during clinical rounding. Patient is still on 6l of o2 when she does not typically use any at home during the day. talked with her about the importance of getting up with PT and OT. SW will follow up with PT and OT to see if patient was able to ambulate and what their dc reccomendations are. SW to follow.
--- NOTE | 2018-04-24 13:11 | NUR ---
Patient doesn't want to get out of bed to chair at this time, she states " I am working on a bowel movement, and I will move then."
--- NOTE | 2018-04-24 16:12 | NUR ---
PT here to work with patient.
--- NOTE | 2018-04-24 19:30 | NUR ---
O2 turned down to 5L HFNC.
--- NOTE | 2018-04-24 19:35 | NUR ---
Bedside report given to LYDIA Asher.
--- NOTE | 2018-04-24 19:35 | NUR ---
Bedside report received from LYDIA Goel. Transfer of care at this time.
--- NOTE | 2018-04-24 20:00 | NUR ---
Assessment complete. Patient is sitting in the chair resting watching TV. Patient has no complaints of pain or SOB. Assessment reveals inspiratory wheezes in the upper lobes bilaterally. She also has hyperactive bowel sounds. Patient has no other needs at this time. Will continue to monitor. Call light within reach.
[2018-04-25] VITALS (540 sets, daily range): BP systolic 105–152; BP diastolic 61–77; PULSE 60–105; TEMP 97.6–98.7; O2SAT 35–98
--- NOTE | 2018-04-25 | NUR ---
Patient getting ready for bed at this time. RT Jesus at the bedside to assist with BiPAP. Patient is resting comfortably in bed. all belongings within reach. No complaints of pain. Vitals remain stable. No further needs at this time. Will continue to monitor, call light within reach.
--- NOTE | 2018-04-25 04:00 | NUR ---
Patient asleep at this time and is easily awakened. No complaints of pain or discomfort. No current needs. Will continue to monitor. Call light within reach.
[2018-04-25 06:22] LABS: HEMOGLOBIN 11.8 g/dl (12.5-16.0); MEAN CELL VOLUME 102 fl (80.0-100.0); MEAN CORPUSCULAR HEMOGLOBIN 33 pg (27.0-31.0); MEAN CORPUSCULAR HGB CONC 32 g/dl (33.0-37.0); MEAN PLATELET VOLUME 10.8 fl (7.4-10.4); PLATELET COUNT 219 K/mm3 (130-400); RED BLOOD COUNT 3.58 M/mm3 (4.10-5.30)
[2018-04-25 06:24] LABS: HEMATOCRIT 36.6 % (37.0-47.0)
[2018-04-25 06:37] LABS: CALCIUM 9.1 mg/dL (8.4-10.2); CREATININE, serum 0.67 mg/dL (0.52-1.25); POTASSIUM 3.7 mmol/L (3.4-5.0)
--- NOTE | 2018-04-25 07:37 | NUR ---
Bedside report given to LYDIA Tejeda
[2018-04-25 07:38] LABS: BAND 8 % (0-10); LYMPHOCYTE 21 % (20.0-51.0); NEUTROPHILS 64 % (42.0-75.2); PLATELET ESTIMATE NORMAL (NORMAL)
--- NOTE | 2018-04-25 08:00 | NUR ---
Patient reports nursing staff unable to flush and/or obtain blood return from red port. attempted to flush red port and flushes hard and no blood return noted. ? kink. reviewed this am chest x ray. with sterile technique right upper arm PICC dressing change done with insertion site cleansed with chloraprep x 1, catheter pulled from 1 cm marking on catheter to 3 cm marking on catheter. chlorhexidine impregnated disk applied. skin prep, stat lock, and tegaderam applied. attempted to flush red port after cap changed and still flushed hard with no blood return noted. flushed purple port with 10ml normaml saline without difficulty with good blood return noted. informed primary care nurse to obtain and order for cath-laurie and instill in red port. will continue to monitor.
--- NOTE | 2018-04-25 08:16 | NUR ---
Domi,RN with [facility] stated Red port on PICC non-functioning despite troubleshooting. Requesting MD to order CathFlo to clear line - if that does not work pt will require PICC exchange. Hospitalist will be notified when here for interdisciplinary rounds
--- NOTE | 2018-04-25 10:50 | NUR ---
1040: Purple port assessed after CathFlo dwell - not able to aspirate. Timer set to reassess in 90 min. 1050: Red port assessed after CathFlow dwell - not able to aspirate. Timer set to reassess in 90 min. MD Sebastian on unit and aware
--- NOTE | 2018-04-25 12:35 | NUR ---
After additional CathFlo dwell time, both ports of PICC are functioning - draws blood and flushes. LYDIA Duron with [facility] notifed
--- NOTE | 2018-04-25 12:54 | NUR ---
MANDEEP attended clinical rounding. Patient is going to transfer to the floor. MANDEEP called Carmelo with PT who reports he does feel that patient will be a safe dc home with her . MANDEEP will continue to follow up on the floor to assist in safe dc.
--- NOTE | 2018-04-25 16:55 | NUR ---
Report phoned to LYDIA Peters
--- NOTE | 2018-04-25 17:00 | NUR ---
RECEIVED REPORT FROM LYDIA GANNON.
--- NOTE | 2018-04-25 17:34 | NUR ---
Pt arrive to room 358 via wheelchair.patient awake,a/ox3.denies pain or discomfort at this time.c/o intermittent cough.reports stress incontinence.oxygen on at 4l/nc.PICC to KENNA.will continue to monitor.call light in reach
--- NOTE | 2018-04-25 17:40 | NUR ---
Pt transported upstairs to [facility] via wheelchair with Poli present
--- NOTE | 2018-04-25 20:00 | NUR ---
PT RINSED OUT MOUTH AFTER TX
--- NOTE | 2018-04-25 20:30 | NUR ---
Initial shift assessment done- denies pain except for when she has "a coughing spell" Tele on, SCD,s on, 02 1L/nc , denies SOB, UP to bathroom with stanby assist- steady on feet. States does use 4L o2 at night with the Bipap
[2018-04-26] VITALS (7 sets, daily range): BP systolic 111–152; BP diastolic 45–64; PULSE 59–77; TEMP 97.8–98.6
[2018-04-26 07:14] LABS: HEMOGLOBIN 11.3 g/dl (12.5-16.0); MEAN CELL VOLUME 104 fl (80.0-100.0); MEAN CORPUSCULAR HEMOGLOBIN 33 pg (27.0-31.0); MEAN CORPUSCULAR HGB CONC 32 g/dl (33.0-37.0); MEAN PLATELET VOLUME 10.6 fl (7.4-10.4); PLATELET COUNT 238 K/mm3 (130-400); RED BLOOD COUNT 3.43 M/mm3 (4.10-5.30); REDCELL DISTRIBUTION WIDTH-CV 13.4 % (11.5-14.5)
[2018-04-26 07:16] LABS: HEMATOCRIT 35.6 % (37.0-47.0)
[2018-04-26 07:28] LABS: CALCIUM 9.1 mg/dL (8.4-10.2); CREATININE, serum 0.68 mg/dL (0.52-1.25); POTASSIUM 3.8 mmol/L (3.4-5.0)
--- NOTE | 2018-04-26 07:34 | NUR ---
Quiet night-VSS, Did wear Bipap all night, PICC to KENNA- sleeping at this time
[2018-04-26 08:21] LABS: LYMPHOCYTE 11 % (20.0-51.0); METAMYELOCYTE 2 % (0-0); MYELOCYTE 3 % (0-0); NEUTROPHILS 74 % (42.0-75.2); PLATELET ESTIMATE NORMAL (NORMAL)
--- NOTE | 2018-04-26 15:26 | NUR ---
SW met with patient about home health recommendation. SW provided the medicare.gov home health resource list. [facility] SW faxed referral.
--- NOTE | 2018-04-26 18:00 | NUR ---
Patient has been doing well today. She slept until about 1100 this am. She walked with PT and did very well. She sat up in the chair most the afternoon. No complaints of pain today. Her was at bedside most the day. She continues to wear oxygen at 2l/min per NC. No other changes at this time. Call light within reach.
--- NOTE | 2018-04-26 20:10 | NUR ---
Shift assessment complete. Pt resting in bed, awake, a&o, cooperative c cares. Pt reports chronic "arthritis pain", PRN Tylenol provided per pt request. Pt denies any other c/o. Pt amb to BR c steady gait at SB assist. PICC noted to R upper arm, patent c good blood return. O2 per NC. Tele in place. Pt denies further needs. Call light in reach, bed alarm on. Will continue to monitor.
--- NOTE | 2018-04-26 20:38 | NUR ---
PT AMBULATED APPROXIMATELY 150 FT. WITHIN FIRST FIVE STEPS HER SATS ON DROPPED TO 85% RR 20 NONLABORED. AFTER FIFTY FEET SHE WAS AT 83% ON 3LNC RR 22 MILD LABOR. PUT O2 UP TO 6LNC AND IT BROUGHT SATS UP TO 89%. SHE WALKED TOTAL 150 FT ON 6LNC IT MAINTAINED SATS OF 89%. AFTER SITTING ON SIDE OF BED FOR 5 MIN SATS ON 6L WERE 94%. PT STATES SHE FELT A LITTLE SHORT OF BREATH AND LIGHT HEADED WHEN WALKING.
--- NOTE | 2018-04-27 07:00 | NUR ---
Pt resting in bed, condition unchanged. Pt has rested well this shift c very few needs. Mehdi bipap well. Pt s needs at this time. Call light in reach. Bedside report given to Lorraine FREEMAN to assume pt cares.
[2018-04-27 07:31] LABS: BASO % 0.2 % (0.0-2.0); EOS # 0.1 (0.0-0.7); EOS % 1.1 % (0-4.0); GRAN # 6.8 (1.4-6.5); GRAN % 76.9 % (42.2-75.2); HEMOGLOBIN 10.9 g/dl (12.5-16.0); LYMPH # 1.1 (1.2-3.4); LYMPH % 11.9 % (20.0-51.0); MEAN CELL VOLUME 104 fl (80.0-100.0); MEAN CORPUSCULAR HEMOGLOBIN 33 pg (27.0-31.0); MEAN CORPUSCULAR HGB CONC 32 g/dl (33.0-37.0); MEAN PLATELET VOLUME 10.9 fl (7.4-10.4); MONO # 0.8 (0.1-0.6); MONO % 8.7 % (1.7-9.3); PLATELET COUNT 232 K/mm3 (130-400); RED BLOOD COUNT 3.28 M/mm3 (4.10-5.30); REDCELL DISTRIBUTION WIDTH-CV 13.2 % (11.5-14.5)
[2018-04-27 07:40] LABS: CALCIUM 8.9 mg/dL (8.4-10.2); CREATININE, serum 0.6 mg/dL (0.52-1.25); POTASSIUM 3.7 mmol/L (3.4-5.0)
[2018-04-27 09:29] VITALS: BP 136/60; PULSE 53; TEMP 98.1
--- NOTE | 2018-04-27 09:43 | NUR ---
Assessment complete.patient awake,a/ox3.c/o chronic generalized pain.lungs diminished to bilat bases.all meds given.patient off bipap,on room air at this time and breathing even and unlabored.PICC to KENNA ,patent.pottasium replaced.pt denies further needs at this time.will continue to monitor.call light in reach
[2018-04-27 12:13] VITALS: BP 145/54; PULSE 70; TEMP 99
[2018-04-27] MEDS ORDERED: OMNICEF 300MG300 MG PO (16:09)
[2018-04-27] MEDS ORDERED: FENTANYL 50MCG TD (16:10)
[2018-04-27 16:18] VITALS: BP 142/83; PULSE 70; TEMP 98.1
--- NOTE | 2018-04-27 16:20 | NUR ---
MANDEEP informed patient will discharge home today with home health from [facility]. MANDEEP presented IM to patient. She signed but did not request a copy. MANDEEP faxed updated O2 order to [facility] and home health orders to [facility].
--- NOTE | 2018-04-27 17:07 | NUR ---
Omnicef prescription called to [facility] pharmacy per patient's request.
--- NOTE | 2018-04-27 17:09 | NUR ---
patient discharged home at this time with home health.all discharge instructions reviewed.PICC discontinued by LYDIA Villasenor.Telemetry discontinued.all questions answered.patient escorted to vehicle by staff.
== END 2018-04-27 17:55 | disposition home health service (06) | DRG 193 ==
LOC: COL.ER 12:34 → ICU 14:10 → MEDICAL 04-18 16:04 → ICU 04-21 13:30 → MEDICAL 04-25 18:12
PROVIDERS: Emergency Medicine; Family Medicine; Hospitalist; Internal Medicine; Nurse Practitioner Family; Physician Assistant
PROC: 02HV33Z Insertion of Infusion Device into Superior Vena Cava, Percutaneous Approach (ICD-10-PCS; principal; 2018-04-22)
DX: J09.X1 Influenza due to identified novel influenza A virus with pneumonia (principal); J96.21 Acute and chronic respiratory failure with hypoxia; J81.1 Chronic pulmonary edema; Z68.41 Body mass index [BMI] 40.0-44.9, adult; Z66 Do not resuscitate; J15.9 Unspecified bacterial pneumonia; E87.6 Hypokalemia; I95.9 Hypotension, unspecified; R41.0 Disorientation, unspecified; G47.33 Obstructive sleep apnea (adult) (pediatric); I48.0 Paroxysmal atrial fibrillation; I10 Essential (primary) hypertension; R31.9 Hematuria, unspecified; G89.29 Other chronic pain; C50.912 Malignant neoplasm of unspecified site of left female breast; E78.5 Hyperlipidemia, unspecified; I25.10 Atherosclerotic heart disease of native coronary artery without angina pectoris; H57.04 Mydriasis; K21.9 Gastro-esophageal reflux disease without esophagitis; F41.9 Anxiety disorder, unspecified; J45.909 Unspecified asthma, uncomplicated; E87.70 Fluid overload, unspecified; Z79.01 Long term (current) use of anticoagulants; Z79.811 Long term (current) use of aromatase inhibitors; E66.9 Obesity, unspecified
CPT/HCPCS: 99223-AI; 99232-AI; 99233-AI; 99239; A4216; A9284; C1751; J0360; J0692; J0696; J1940; J2543; J2997; J3370; J3480; J7030; J7050; J7512

== ENCOUNTER → 2018-05-10 | Outpatient (CLI) | payer MEDICARE, BC ==
[~2018-05-10] MED LIST changes: +FENTANYL 50MCG TD; +OMNICEF 300MG300 MG PO; +PRIL40 PO
== END ==
LOC: MC.RAD 12:52
DX: Z85.3 Personal history of malignant neoplasm of breast (principal); Z98.890 Other specified postprocedural states
CPT/HCPCS: G0279

== ENCOUNTER 2018-06-22 19:19 | Emergency (ER) | payer MEDICARE, BC ==
[~2018-06-22] VITALS: Ht 154.9 cm; Wt 100.0 kg
[2018-06-22 19:26] VITALS: TEMP 97.5
[2018-06-22] MEDS ORDERED: TESTOSTERONE GEL (20:03)
[2018-06-22] MEDS ORDERED: DOXYCYCLINE 10100 MG PO (20:04)
[2018-06-22] MEDS ORDERED: BETAMETHASONE VA0.1% TP (20:04)
[2018-06-22] MEDS ORDERED: PROVIGIL 100MG100 MG PO (20:05)
[2018-06-22] MEDS ORDERED: PREDNISONE20 MG PO (20:05)
[2018-06-22] MEDS ORDERED: PRINIVIL20 MG PO (20:06)
[2018-06-22 20:31] LABS: COLLECTION METHOD CLEAN CATCH
[2018-06-22 20:41] LABS: BASO # 0.1 (0.0-0.2); BASO % 0.8 % (0.0-2.0); EOS # 0.2 (0.0-0.7); EOS % 3.1 % (0-4.0); GRAN # 3.7 (1.4-6.5); GRAN % 61.6 % (42.2-75.2); HEMATOCRIT 38.9 % (37.0-47.0); HEMOGLOBIN 12.2 g/dl (12.5-16.0); LYMPH # 1.4 (1.2-3.4); LYMPH % 22.8 % (20.0-51.0); MEAN CELL VOLUME 105 fl (80.0-100.0); MEAN CORPUSCULAR HEMOGLOBIN 33 pg (27.0-31.0); MEAN CORPUSCULAR HGB CONC 31 g/dl (33.0-37.0); MEAN PLATELET VOLUME 9.8 fl (7.4-10.4); MONO # 0.7 (0.1-0.6); MONO % 11.4 % (1.7-9.3); PLATELET COUNT 196 K/mm3 (130-400); RED BLOOD COUNT 3.71 M/mm3 (4.10-5.30); REDCELL DISTRIBUTION WIDTH-CV 13.2 % (11.5-14.5)
[2018-06-22 20:49] LABS: ALBUMIN 4.3 gm/dL (3.5-5.0); BILIRUBIN,TOTAL 0.7 mg/dL (0.0-1.0); CALCIUM 10.1 mg/dL (8.4-10.2); CREATININE, serum 0.67 (0.52-1.25); POTASSIUM 3.8 mmol/L (3.4-5.0)
[2018-06-22 20:54] LABS: MUCOUS Present /lpf; PH 8 (5-8); URINE APPEARANCE Clear; URINE BACTERIA None Seen /hpf; URINE BILIRUBIN Negative (NEGATIVE); URINE BLOOD 3+ (NEGATIVE); URINE COLOR Straw; URINE GLUCOSE Negative (NEGATIVE); URINE KETONE Negative (NEGATIVE); URINE LEUKOCYTE ESTERASE Negative (NEGATIVE); URINE NITRATE Negative (NEGATIVE); URINE PROTEIN(semi-quant) Negative (NEGATIVE); URINE UROBILINOGEN Negative (NEGATIVE)
[2018-06-22 20:55] LABS: INR 1.4 (0.8-3.0); PROTHROMBIN TIME 16.4 SECONDS (9.7-12.8)
[2018-06-22 20:57] LABS: PARTIAL THROMBOPLASTIN TIME 36.7 SECONDS (26.0-37.0)
[2018-06-22 21:35] VITALS: BP 174/73; PULSE 57
== END 2018-06-22 21:40 | disposition home or self-care (01) ==
LOC: COL.ER 19:19
PROVIDERS: Emergency Medicine
DX: N93.9 Abnormal uterine and vaginal bleeding, unspecified (principal); I48.91 Unspecified atrial fibrillation; I10 Essential (primary) hypertension; F32.9 Major depressive disorder, single episode, unspecified; Z87.09 Personal history of other diseases of the respiratory system; Z85.3 Personal history of malignant neoplasm of breast; Z79.51 Long term (current) use of inhaled steroids; Z79.82 Long term (current) use of aspirin

== ENCOUNTER 2018-12-20 15:44 | Outpatient (RCR) | payer MEDICARE, BC ==
[~2018-12-20 15:44] MED LIST changes: +BETAMETHASONE VA0.1% TP; +DOXYCYCLINE 10100 MG PO; +PREDNISONE20 MG PO; +PRINIVIL20 MG PO; +TESTOSTERONE GEL
== END 2018-12-23 11:59 | disposition home or self-care (01) ==
LOC: MKS.ESL.PT 15:44
DX: M79.89 Other specified soft tissue disorders (principal)

== ENCOUNTER 2019-01-17 14:18 | Day surgery (SDC) | payer MEDICARE, BC ==
[~2019-01-17] VITALS: Ht 154.9 cm; Wt 94.1 kg
[~2019-01-17 14:18] MED LIST changes: -CALCIUM 600MG+D1 TAB PO; +NEURONTIN300 MG/CAP PO; +OSCAL 500 TAB500 MG PO; -VITAMIN C500 MG PO
[2019-01-17] MEDS ORDERED: PROAIR HFA0.09 MG/AC IH (15:28)
[2019-01-17] MEDS ORDERED: COLACE 100100 MG/CAP PO (15:31)
[2019-01-17] MEDS ORDERED: DULCOLAX TAB5 MG PO (15:33)
[2019-01-17] MEDS ORDERED: PROBIOTIC FORMU1 CAP PO (15:36)
[2019-01-17] MEDS ORDERED: FIBERCON PO (15:37)
[2019-01-17] MEDS ORDERED: AMOXICILLIN PO (15:41)
[2019-01-17 15:48] VITALS: BP 176/80; PULSE 78; TEMP 98.7
[2019-01-17 16:05] VITALS: BP 130/59; PULSE 56; TEMP 97.1
--- NOTE | 2019-01-17 16:05 | NUR ---
Patient arrives back to [facility] with oral airway in and O2 on, IV infusing. Patient asleep. Patient monitor applied, vitals stable. RECEIVER/LABORER reports patient's blood pressure has been elevated and patient is ok to go home with elevated blood pressure. Patient's spouse at bedside.
--- NOTE | 2019-01-17 16:10 | NUR ---
Oral airway removed by ELECTRICAL EQUIPMENT TECHNICIAN, patient awakening. Vitals stable. Dr Rubio into see patient and spouse.
--- NOTE | 2019-01-17 16:15 | NUR ---
Patient given muffin and soda at this time. Patient alert and denies pain or nausea.
--- NOTE | 2019-01-17 16:15 | NUR ---
Oxygen mask switched to nasal cannula 2L/min at this time.
[2019-01-17 16:20] VITALS: BP 141/55; PULSE 56
--- NOTE | 2019-01-17 16:20 | NUR ---
Patient up to restroom at this time. Patient ambulates with stand by assist and without any complications.
--- NOTE | 2019-01-17 16:30 | NUR ---
Patient back from restroom at this time. Oxygen reapplied. Vitals stable. Blood pressure still elevated, patient educated on high blood pressure and patient states she will follow-up with her PCP.
[2019-01-17 16:35] VITALS: BP 154/101; PULSE 74
--- NOTE | 2019-01-17 16:45 | NUR ---
Patient tolerates soda and muffin without any nausea. Patient was able to urinate, denies blood in urine.
[2019-01-17 16:50] VITALS: BP 185/83; PULSE 72
--- NOTE | 2019-01-17 17:00 | NUR ---
Dismissal instructions gone over with patient and patient's spouse. Both verbalize understanding and all questions answered.
--- NOTE | 2019-01-17 17:30 | NUR ---
Patient dismissed to patient enterance via wheelchair with patient's home oxygen to private vehicle with patient's spouse driving. Patient and patient's spouse leave thanking staff for services.
== END 2019-01-17 17:30 | disposition home or self-care (01) ==
LOC: SDCO 14:18
DX: N36.42 Intrinsic sphincter deficiency (ISD) (principal); N39.3 Stress incontinence (female) (male); J30.2 Other seasonal allergic rhinitis; F32.9 Major depressive disorder, single episode, unspecified; K21.9 Gastro-esophageal reflux disease without esophagitis; I10 Essential (primary) hypertension; M19.90 Unspecified osteoarthritis, unspecified site; F41.0 Panic disorder [episodic paroxysmal anxiety]; J15.9 Unspecified bacterial pneumonia; I87.2 Venous insufficiency (chronic) (peripheral); M79.7 Fibromyalgia; Z86.14 Personal history of Methicillin resistant Staphylococcus aureus infection; Z85.3 Personal history of malignant neoplasm of breast; Z90.49 Acquired absence of other specified parts of digestive tract; Z79.899 Other long term (current) drug therapy; Z79.01 Long term (current) use of anticoagulants; Z79.52 Long term (current) use of systemic steroids; Z88.1 Allergy status to other antibiotic agents; Z88.8 Allergy status to other drugs, medicaments and biological substances; Z91.040 Latex allergy status; Z91.048 Other nonmedicinal substance allergy status; Z82.3 Family history of stroke; Z82.49 Family history of ischemic heart disease and other diseases of the circulatory system; Z84.1 Family history of disorders of kidney and ureter; Z82.62 Family history of osteoporosis
CPT/HCPCS: J0690; J1100; J1885; J2405; J2704; J7120; L8606

== ENCOUNTER → 2019-08-04 | Outpatient (CLI) | payer MEDICARE, BC ==
[~2019-08-04] MED LIST changes: +AMOXICILLIN PO; +DULCOLAX TAB5 MG PO; +FIBERCON PO; +PROAIR HFA0.09 MG/AC IH; +PROBIOTIC FORMU1 CAP PO
== END ==
LOC: MC.RAD 17:00
DX: Z12.31 Encounter for screening mammogram for malignant neoplasm of breast (principal); Z98.890 Other specified postprocedural states; Z98.82 Breast implant status; Z85.3 Personal history of malignant neoplasm of breast

== ENCOUNTER 2020-06-01 08:26 | Day surgery (SDC) | payer MEDICARE, BC ==
[~2020-06-01] VITALS: Ht 154.9 cm; Wt 92.5 kg
[2020-06-01 08:47] VITALS: BP 196/98; PULSE 86; TEMP 98.3
[2020-06-01] MEDS ORDERED: XARELTO20 MG PO (08:59)
[2020-06-01] MEDS ORDERED: KLOR-CON20 MEQ PO (09:00)
[2020-06-01] MEDS ORDERED: PRAVACHOL 40MG40 MG PO (09:00)
[2020-06-01] MEDS ORDERED: SINGULAIR 110 MG/TAB PO (09:01)
[2020-06-01] MEDS ORDERED: PROVIGIL200 MG PO (09:01)
[2020-06-01] MEDS ORDERED: PRILOSEC 20MG20 MG PO (09:01)
[2020-06-01] MEDS ORDERED: KAPSPARGO SPRIN25 MG PO (09:02)
[2020-06-01] MEDS ORDERED: PRINIVIL20 MG PO (09:02)
[2020-06-01] MEDS ORDERED: TAMBOCOR50 MG PO (09:03)
[2020-06-01] MEDS ORDERED: NEURONTIN300 MG/CAP PO (09:03)
[2020-06-01] MEDS ORDERED: DULCOLAX TAB5 MG PO (09:04)
[2020-06-01] MEDS ORDERED: TYLENOL 8 HR PO (09:05)
[2020-06-01] MEDS ORDERED: DUO-KAPS1 CAP PO (10:10)
[2020-06-01] MEDS ORDERED: PROBIOTIC FORMU1 CAP PO (10:10)
[2020-06-01] MEDS ORDERED: BIOTENE ORALBAL42 GM MM (10:11)
[2020-06-01] MEDS ORDERED: FIBERCON PO (10:11)
[2020-06-01] MEDS ORDERED: AYR SALINE MIST50 ML NS (10:12)
[2020-06-01] MEDS ORDERED: REFRESH TEARS 330 ML OP (10:13)
[2020-06-01 10:25] VITALS: BP 176/75; PULSE 83
--- NOTE | 2020-06-01 10:25 | NUR ---
Patient returns to bay 5 per cart and transfers from cart to recliner with one person assist. IV fluids infusing and patient denies abdominal pain or nausea. Call light in reach and talking with spouse. Given grape juice and muffing to eat and drink. Spouse given snack.
[2020-06-01 10:40] VITALS: BP 166/76; PULSE 83
--- NOTE | 2020-06-01 10:40 | NUR ---
Dr. Gregorio in the room and talks with patient and spouse. All questions answered.
[2020-06-01 10:55] VITALS: BP 164/85; PULSE 83
--- NOTE | 2020-06-01 10:55 | NUR ---
IV discontinued and site is free of redness or swelling. Patient dresses self.
--- NOTE | 2020-06-01 11:05 | NUR ---
Dismissal instructions given and voices understanding of these. All questions answered.
--- NOTE | 2020-06-01 11:11 | NUR ---
Patient dismissed to home driven by spouse and taken to the front door per wheelchair and assisted into vehicle with instructions in hand.
== END 2020-06-01 11:11 | disposition home or self-care (01) ==
LOC: SDCO 08:26
DX: Z12.11 Encounter for screening for malignant neoplasm of colon (principal); D12.3 Benign neoplasm of transverse colon; D12.4 Benign neoplasm of descending colon; D12.8 Benign neoplasm of rectum; K21.9 Gastro-esophageal reflux disease without esophagitis; I10 Essential (primary) hypertension; J45.909 Unspecified asthma, uncomplicated; I48.91 Unspecified atrial fibrillation; Z85.3 Personal history of malignant neoplasm of breast; G47.33 Obstructive sleep apnea (adult) (pediatric); Z92.3 Personal history of irradiation; Z96.652 Presence of left artificial knee joint; Z79.01 Long term (current) use of anticoagulants; Z91.040 Latex allergy status; Z88.1 Allergy status to other antibiotic agents; Z88.8 Allergy status to other drugs, medicaments and biological substances; Z91.048 Other nonmedicinal substance allergy status; K64.0 First degree hemorrhoids; Z79.82 Long term (current) use of aspirin; G89.29 Other chronic pain; Z20.822 Contact with and (suspected) exposure to COVID-19
CPT/HCPCS: J2704; J7030

== ENCOUNTER → 2020-08-13 | Outpatient (CLI) | payer MEDICARE, BC ==
[~2020-08-13] MED LIST changes: +AYR SALINE MIST50 ML NS; +DUO-KAPS1 CAP PO; +FENTANYL 12MCG TD; +KAPSPARGO SPRIN25 MG PO; +KLOR-CON20 MEQ PO; +PRILOSEC 20MG20 MG PO; +PROVIGIL200 MG PO; +REFRESH TEARS 330 ML OP; +ULTRAM 50MG TAB50 MG PO
== END ==
LOC: MC.RAD 09:30
DX: Z12.31 Encounter for screening mammogram for malignant neoplasm of breast (principal)

== ENCOUNTER 2020-10-16 13:11 | Observation (INO) | payer MEDICARE, BC ==
[~2020-10-16] VITALS: Ht 165.1 cm; Wt 92.3 kg
[~2020-10-16 13:11] MED LIST changes: -FENTANYL 12MCG TD; -ULTRAM 50MG TAB50 MG PO
[2020-10-16 14:09] LABS: COLLECTION METHOD CLEAN CATCH
[2020-10-16 14:17] LABS: PH 9 (5-8); SQUAMOUS EPITHELIAL None Seen /hpf; URINE APPEARANCE Clear; URINE BACTERIA None Seen /hpf; URINE BILIRUBIN Negative (NEGATIVE); URINE BLOOD 2+ (NEGATIVE); URINE COLOR Straw; URINE GLUCOSE Negative (NEGATIVE); URINE KETONE Negative (NEGATIVE); URINE LEUKOCYTE ESTERASE Negative (NEGATIVE); URINE NITRATE Negative (NEGATIVE); URINE PROTEIN(semi-quant) 1+ (NEGATIVE); URINE UROBILINOGEN Negative (NEGATIVE)
[2020-10-16 14:34] LABS: TROPONIN-I 0.012 ng/mL (0.000-0.035)
[2020-10-16 14:35] LABS: HEMATOCRIT 43.3 % (37.0-47.0); HEMOGLOBIN 14.4 g/dl (12.5-16.0); MEAN CELL VOLUME 99 fl (80.0-100.0); MEAN CORPUSCULAR HEMOGLOBIN 33 pg (27.0-31.0); MEAN CORPUSCULAR HGB CONC 33 g/dl (33.0-37.0); MEAN PLATELET VOLUME 10.1 fl (7.4-10.4); PLATELET COUNT 172 K/mm3 (130-400); RED BLOOD COUNT 4.39 M/mm3 (4.10-5.30); REDCELL DISTRIBUTION WIDTH-CV 12.6 % (11.5-14.5)
[2020-10-16 15:20] LABS: BAND 17 % (0-10); LYMPHOCYTE 8 % (20.0-51.0); NEUTROPHILS 61 % (42.0-75.2); PLATELET ESTIMATE NORMAL (NORMAL)
[2020-10-16 15:27] LABS: ALBUMIN 4.8 gm/dL (3.5-5.0); BILIRUBIN,TOTAL 1.3 mg/dL (0.0-1.0); CALCIUM 9.8 mg/dL (8.4-10.2); CREATININE, serum 0.55 (0.52-1.25); POTASSIUM 3.3 mmol/L (3.4-5.0); TOTAL PROTEIN 7.9 gm/dL (6.4-8.2)
--- NOTE | 2020-10-16 17:03 | NUR ---
Pt arrived to room 313 at 1640. Oriented pt and to room. Pt awake but drowsy, oriented x4. Not moving left arm or hand. Left forearm bruised and swollen. Skin hot to touch but pt afebrile. Pt unaware of home meds. Allergies and pharmacy confirmed w/pt's . Pt's to go home and get updated med list and bring back this evening. Pt denies needs at this time. Call light in reach and bed alarm on.
[2020-10-16 17:18] VITALS: BP 169/86; PULSE 82; TEMP 98.7
--- NOTE | 2020-10-16 17:38 | NUR ---
Thorough inspection of pt's skin done by this RN and BEEF BONER. No fentanyl patches seen. Pt does have large bruise to left posterior shoulder and reddened area to right hill. She reports frequent cellulitis to the red area on hill and has noticed it getting worse over last few days.
[2020-10-16] MEDS ORDERED: FENTANYL 50MCG TD (18:21)
[2020-10-16 22:16] VITALS: BP 177/77; PULSE 61; TEMP 98.4
[2020-10-17 05:00] VITALS: BP 186/91; PULSE 88; TEMP 98.5
--- NOTE | 2020-10-17 07:14 | NUR ---
Patient has had a very calm night. No major needs. She is alert and oriented. Shift report given to the day RN.
[2020-10-17 07:41] LABS: BASO % 0.3 % (0.0-2.0); EOS % 0.3 % (0-4.0); GRAN # 4.8 (1.4-6.5); HEMOGLOBIN 13.5 g/dl (12.5-16.0); LYMPH # 1.1 (1.2-3.4); MEAN CELL VOLUME 102 fl (80.0-100.0); MEAN CORPUSCULAR HEMOGLOBIN 33 pg (27.0-31.0); MEAN CORPUSCULAR HGB CONC 32 g/dl (33.0-37.0); MEAN PLATELET VOLUME 10.2 fl (7.4-10.4); MONO # 1.1 (0.1-0.6); PLATELET COUNT 163 K/mm3 (130-400); RED BLOOD COUNT 4.11 M/mm3 (4.10-5.30); REDCELL DISTRIBUTION WIDTH-CV 13.1 % (11.5-14.5)
[2020-10-17 07:44] LABS: CALCIUM 9.2 mg/dL (8.4-10.2); CREATININE, serum 0.81 (0.52-1.25); MAGNESIUM 2.1 mg/dL (1.6-2.3); POTASSIUM 3.4 mmol/L (3.4-5.0)
[2020-10-17 07:46] VITALS: BP 153/69; PULSE 59; TEMP 99.2
--- NOTE | 2020-10-17 10:28 | NUR ---
SCHEDULED MEDICATIONS GIVEN. SHIFT ASSESSMENT PREFORMED. VSS. PATIENT C/O 07/22 "HURTING PAIN" IN LEFT WRIST. EXTREMETY ELEVATED AND COOL PACK PLACED. PATIENT DENIES ANY FURTHER PAIN, DISCOMFORT, SOA, OR NEEDS AT THIS TIME. CALL LIGHT IN REACH. FALL PRECAUTIONS IN PLACE.
[2020-10-17 11:26] VITALS: BP 150/61; PULSE 71; TEMP 98.7
--- NOTE | 2020-10-17 14:10 | NUR ---
Plan is to screen for [facility] rehab. MANDEEP met with patient and in the room. SW educated patient on safety and recommednation for care. Patient reports that she would like to have her to help with the decision to do skilled care. is Poli . Patient reports that she recently had a fall at home that she had a orthepedic surgeon appointment scheduled on sunday. PCP is Dr. Gordon, Dr. Burnett, Dr. Greenberg, Dr. Centeno, Dr. Paulson, Dr. Guajardo, and Dr. Garcia. Patient reports that she uses [facility] for medications and has oxygen at home at 4 liters while walking and a Bipap, use of nebulizer prn. Patient reports that she was doing PT at outpatient services at [facility]. Patient shares that she would prefer to go home but reports that if the bladder issue was cleared up he could take care of her at home, It does not appear to be the safest option. MANDEEP faxed assessment to [facility]. Waiting on screen. Educated patient and about out of pocket cost. Will follow.
[2020-10-17 15:49] VITALS: BP 180/81; PULSE 64; TEMP 99.3
--- NOTE | 2020-10-17 17:44 | NUR ---
PATIENT HAS HAD AN OK DAY. ORAL HYDRALAZINE ORDERED FOR ELEVATED BP. FENTANYL PATCH PLACED ON PATIENT'S UPPER RIGHT BACK. PATIENT DENIES ANY FURTHER PAIN, DISCOMFORT, SOA, OR NEEDS AT THIS TIME. CALL LIGHT IN REACH. FALL PRECAUTIONS IN PLACE.
[2020-10-17 19:28] VITALS: BP 147/69; PULSE 66; TEMP 98.8
--- NOTE | 2020-10-17 21:00 | NUR ---
Odette is resting in bed, alert and oriented x4, asked for Tylenol for her pain in the left lower leg. VSS, no nausea or vomiting. Tele in place. In use of Post-ick. Assessment completed and meds provided. No further needs at this time. Call light within reach.
[2020-10-17 23:19] VITALS: BP 160/69; PULSE 64; TEMP 98.3
[2020-10-18 03:30] VITALS: BP 154/70; PULSE 70; TEMP 97.5
--- NOTE | 2020-10-18 06:23 | NUR ---
Patient had a calm night. She just asked for tylenol for her pain. No further needs at this time. Shift report will be given.
[2020-10-18 09:13] VITALS: BP 137/58; PULSE 54; TEMP 97.7
--- NOTE | 2020-10-18 09:47 | NUR ---
PT PLEASANT, AOX4, DENIES PAIN/SOB/N/V/D. ASSESSMENT PERFORMED, MEDICATIONS GIVEN, POTASSIUM REPLACED PER PROTOCOL, PT BOOSTED IN BED, BREAKFAST DELIVERED, NO OTHER NEEDS.
[2020-10-18] MEDS ORDERED: ULTRAM 50MG TAB50 MG PO (10:34)
[2020-10-18] MEDS ORDERED: FENTANYL 12MCG TD (10:34)
--- NOTE | 2020-10-18 11:50 | NUR ---
Renny met with the pt who stated her preference to use [facility]. Renny faxed over referral to [facility]. 11:50 AM
[2020-10-18 12:07] VITALS: BP 133/51; PULSE 53; TEMP 98
--- NOTE | 2020-10-18 15:00 | NUR ---
pt escorted out via wheelchair with pt belongings. discharge education provided and iv/tele removed. no other needs
== END 2020-10-18 15:00 | disposition home or self-care (01) ==
LOC: COL.ER 13:11 → MEDICAL 15:43
PROVIDERS: Emergency Medicine; ADMIT Internal Medicine
DX: G92 Toxic encephalopathy (principal); G89.29 Other chronic pain; S59.912A Unspecified injury of left forearm, initial encounter; G72.9 Myopathy, unspecified; I48.91 Unspecified atrial fibrillation; I10 Essential (primary) hypertension; I25.10 Atherosclerotic heart disease of native coronary artery without angina pectoris; E78.5 Hyperlipidemia, unspecified; Z79.899 Other long term (current) drug therapy; Z85.3 Personal history of malignant neoplasm of breast
CPT/HCPCS: G0378; J2310

== ENCOUNTER 2020-12-20 16:00 | Outpatient (RCR) | payer MEDICARE, BC ==
[~2020-12-20 16:00] MED LIST changes: +FENTANYL 12MCG TD; +ULTRAM 50MG TAB50 MG PO
== END 2020-12-26 | disposition home or self-care (01) ==
LOC: MKS.ESL.PT
DX: M54.2 Cervicalgia (principal)

== ENCOUNTER → 2020-12-21 | Outpatient (CLI) | payer MEDICARE, BC | LOC: COL.RAD 13:54 | DX: M48.061 Spinal stenosis, lumbar region without neurogenic claudication (principal); M47.816 Spondylosis without myelopathy or radiculopathy, lumbar region | CPT/HCPCS: A9585 ==

== ENCOUNTER → 2021-03-14 | Outpatient (RCR) | payer MEDICARE, BC | LOC: MKS.ESL.PT | DX: M54.2 Cervicalgia (principal) ==

== ENCOUNTER → 2021-04-11 | Outpatient (RCR) | payer MEDICARE, BC | LOC: MKS.ESL.PT | DX: G24.3 Spasmodic torticollis (principal) ==

== ENCOUNTER 2021-05-09 08:03 | Outpatient (RCR) | payer MEDICARE, BC | END 2021-05-12 | disposition still patient (30) | LOC: MKS.ESL.PT | DX: G24.3 Spasmodic torticollis (principal) ==

== ENCOUNTER 2021-06-06 17:02 | Outpatient (RCR) | payer MEDICARE, BC | END 2021-06-11 | disposition home or self-care (01) | LOC: MKS.ESL.PT | DX: M54.2 Cervicalgia (principal) ==

== ENCOUNTER 2021-07-06 10:44 | Outpatient (RCR) | payer MEDICARE, BC | END 2021-07-12 | disposition home or self-care (01) | LOC: MKS.ESL.PT | DX: M54.2 Cervicalgia (principal) ==

== ENCOUNTER 2021-08-01 08:08 | Outpatient (RCR) | payer MEDICARE, BC | END 2021-08-11 | disposition home or self-care (01) | LOC: MKS.ESL.PT | DX: M54.2 Cervicalgia (principal) ==

== ENCOUNTER → 2021-08-19 | Outpatient (CLI) | payer MEDICARE, BC | LOC: MC.RAD 15:14 | DX: Z12.31 Encounter for screening mammogram for malignant neoplasm of breast (principal) ==

== ENCOUNTER 2021-09-09 15:48 | Outpatient (RCR) | payer MEDICARE, BC | END 2021-09-11 | disposition still patient (30) | LOC: MKS.ESL.PT | DX: M54.2 Cervicalgia (principal); M25.569 Pain in unspecified knee; Z86.12 Personal history of poliomyelitis; Z87.39 Personal history of other diseases of the musculoskeletal system and connective tissue ==

== ENCOUNTER → 2021-12-12 | Outpatient (RCR) | payer MEDICARE, BC | END | disposition home or self-care (01) | LOC: MKS.ESL.PT | DX: M54.2 Cervicalgia (principal) ==

== ENCOUNTER → 2022-04-26 | Outpatient (CLI) | payer MEDICARE, BC | LOC: COL.PUL 11:13 | DX: R06.02 Shortness of breath (principal) ==

== ENCOUNTER → 2022-05-11 | Outpatient (CLI) | payer MEDICARE, BC | LOC: COL.PUL 12:29 | DX: R06.02 Shortness of breath (principal) ==

== ENCOUNTER 2022-06-09 15:50 | Outpatient (RCR) | payer MEDICARE, BC | END 2022-06-11 | LOC: MKS.ESL.PT | DX: M54.2 Cervicalgia (principal); M25.569 Pain in unspecified knee; G89.29 Other chronic pain ==

== ENCOUNTER 2022-11-15 16:05 | Outpatient (CLI) | payer MEDICARE, BC ==
[~2022-11-15] VITALS: Ht 165.1 cm; Wt 91.2 kg
[~2022-11-15 16:05] MED LIST changes: +PROBIOTIC-MAJOR PO
[2022-11-15] MEDS ORDERED: VITAMINS A AND1 OIN TOP (16:30)
[2022-11-15] MEDS ORDERED: APRESOLINE 10MG10 MG PO (16:31)
[2022-11-15] MEDS ORDERED: NORVASC 5MG5 MG/TAB PO (16:32)
[2022-11-15] MEDS ORDERED: REQUIP 0.5MG0.5 MG PO (16:33)
[2022-11-15] MEDS ORDERED: CATAPRES 0.1MG0.1 MG PO (16:33)
[2022-11-15] MEDS ORDERED: LASIX 40MG TABL40 MG PO (16:34)
[2022-11-15] MEDS ORDERED: LEXAPRO 10MG10 MG PO (16:35)
[2022-11-15] MEDS ORDERED: ASTELIN NASAL S34 ML NS (16:36)
[2022-11-15] MEDS ORDERED: BREO IH (16:36)
[2022-11-15] MEDS ORDERED: ARIMIDEX1 MG PO (16:37)
[2022-11-15] MEDS ORDERED: ZYLOPRIM 300MG300 MG PO (16:37)
[2022-11-15] MEDS ORDERED: VITAMIN D 400400 IU PO (16:38)
[2022-11-15] MEDS ORDERED: VITAMIN C500 MG PO (16:38)
[2022-11-15] MEDS ORDERED: MIRALAX PA17 GM/Dose PO (16:39)
[2022-11-15] MEDS ORDERED: MAGNESIUM250 M1 PO (16:39)
[2022-11-15] MEDS ORDERED: ALLEGRA 180MG180 MG PO (16:40)
[2022-11-15] MEDS ORDERED: CALCIUM 600600 MG PO (16:40)
[2022-11-15] MEDS ORDERED: AMOXICILLIN 25250 MG PO (16:43)
[2022-11-15] MEDS ORDERED: GEMTESA75 MG PO (16:44)
[2022-11-15 16:46] VITALS: BP 145/77; PULSE 79; TEMP 97.6
== END 2022-11-15 16:55 | disposition home or self-care (01) ==
LOC: EUO 16:05
DX: M81.0 Age-related osteoporosis without current pathological fracture (principal)
CPT/HCPCS: J0897

== ENCOUNTER → 2023-02-21 | Outpatient (CLI) | payer MEDICARE, BC ==
[~2023-02-21] MED LIST changes: +AMOXICILLIN 25250 MG PO; +APRESOLINE 10MG10 MG PO; +CALCIUM 600600 MG PO; +CATAPRES 0.1MG0.1 MG PO; +GEMTESA75 MG PO; +LEXAPRO 10MG10 MG PO; +NORCO 325 MG-51 TAB PO; +NORVASC 5MG5 MG/TAB PO; +REQUIP 0.5MG0.5 MG PO; +VITAMIN C500 MG PO; +VITAMIN D 400400 IU PO; +VITAMINS A AND1 OIN TOP
== END ==
LOC: COL.RAD 10:20
DX: M43.24 Fusion of spine, thoracic region (principal); Z74.09 Other reduced mobility; Z78.9 Other specified health status

== ENCOUNTER → 2023-03-16 | Outpatient (CLI) | payer MEDICARE, BC | LOC: MC.RAD 08:51 | DX: N63.22 Unspecified lump in the left breast, upper inner quadrant (principal); Z98.890 Other specified postprocedural states ==

== ENCOUNTER 2023-06-06 00:55 | Inpatient (IN) | payer MEDICARE, BC ==
[~2023-06-06] VITALS: Ht 154.9 cm; Wt 88.9 kg
[2023-06-06] VITALS (1020 sets, daily range): BP systolic 143–151; BP diastolic 74–79; PULSE 60–61; TEMP 98.3–99; O2SAT 47–100
[2023-06-06] MEDS ORDERED: NS 1,000 ML IV ONE (01:15)
[2023-06-06 01:23] LABS: BASO # 0.1 K/mm3 (0.0-0.2); BASO % 1.1 % (0.0-2.0); EOS # 0.2 K/mm3 (0.0-0.7); EOS % 2.8 % (0.0-4.0); GRAN # 5.7 K/mm3 (1.4-6.5); GRAN % 74.1 % (42.2-75.2); HEMOGLOBIN 11.3 g/dl (12.5-16.0); LYMPH # 0.7 K/mm3 (1.2-3.4); LYMPH % 9.1 % (20.0-51.0); MEAN CELL VOLUME 102 fl (80.0-100.0); MEAN CORPUSCULAR HEMOGLOBIN 33 pg (27-31); MEAN CORPUSCULAR HGB CONC 32 g/dl (33.0-37.0); MEAN PLATELET VOLUME 10.1 fl (7.4-10.4); MONO % 12.5 % (1.7-9.3); PLATELET COUNT 219 K/mm3 (130-400); RED BLOOD COUNT 3.44 M/mm3 (4.10-5.30); REDCELL DISTRIBUTION WIDTH-CV 14.8 % (11.5-14.5)
[2023-06-06 01:30] LABS: HEMATOCRIT 35.1 % (37.0-47.0)
[2023-06-06 01:35] LABS: ALBUMIN 3.3 g/dL (3.4-4.8); BILIRUBIN,TOTAL 0.9 mg/dL (0.2-1.2); C-REACTIVE PROTEIN 23.07 mg/dL (0.00-0.50); CALCIUM 9.2 mg/dL (8.4-10.2); CREATININE, serum 0.89 mg/dL (0.57-1.11); POTASSIUM 4.5 mEq/L (3.5-4.5); TOTAL PROTEIN 7.1 g/dl (6.2-8.1)
[2023-06-06 01:43] LABS: TROPONIN-I 0.048 ng/mL (0.00-0.033)
[2023-06-06] MEDS ORDERED: Cefepime 1 G in Water For Injection,Sterile 10 ML IV ONE (01:45)
[2023-06-06 01:49] LABS: COLLECTION METHOD CATHETER
[2023-06-06] MEDS ORDERED: Metoprolol Tartrate 5 MG/5 ML VIAL IV ONE (02:00)
[2023-06-06 02:03] LABS: URINE APPEARANCE CLOUDY (CLEAR/HAZY); URINE BLOOD TRACE (NEGATIVE); URINE COLOR Dark Yellow (YELLOW); URINE GLUCOSE NEGATIVE (NEGATIVE); URINE KETONE TRACE (NEGATIVE); URINE NITRATE NEGATIVE (NEGATIVE); URINE PROTEIN(semi-quant) TRACE (NEGATIVE)
[2023-06-06 02:55] LABS: AMORPHOUS CRYSTAL PRESENT (NOT PRESENT); MUCOUS PRESENT (NOT PRESENT); URINE BACTERIA OCCASIONAL /hpf (NONE SEEN); URINE RBC 0-2 /hpf (0-2); URINE WBC 0-2 /hpf (0-2)
[2023-06-06] MEDS ORDERED: Albuterol/Ipratropium 3 MG-0.5 MG/3 ML Neb Soln IH PRN ×2 (04:00→04:15)
[2023-06-06] MEDS ORDERED: TYLENOL 500MG500 MG PO ×2 (04:15→04:27)
[2023-06-06] MEDS ORDERED: methylPREDNISolone Sod Succ 40 MG/ML VIAL IV SCH (04:15)
[2023-06-06] MEDS ORDERED: dexAMETHasone 10 MG/ML VIAL IV ONE (04:15)
[2023-06-06] MEDS ORDERED: ARTIFICIAL TEAR15 M7 OP (04:16)
[2023-06-06] MEDS ORDERED: MELATIN 3 MG-11 TAB PO (04:16)
[2023-06-06] MEDS ORDERED: GENTLE LAXATIVE10 MG RC (04:16)
[2023-06-06] MEDS ORDERED: NARCAN4 MG NS (04:17)
[2023-06-06] MEDS ORDERED: ROXICODONE 55 MG/TAB PO (04:18)
[2023-06-06] MEDS ORDERED: ZANAFLEX 4MG TAB4 MG PO (04:19)
[2023-06-06] MEDS ORDERED: XARELTO20 MG PO (04:19)
[2023-06-06] MEDS ORDERED: SENNA-LAX8.6 MG PO (04:19)
[2023-06-06] MEDS ORDERED: NEXIUM 40MG40 MG PO (04:20)
[2023-06-06] MEDS ORDERED: K-DUR20 MEQ PO (04:21)
[2023-06-06] MEDS ORDERED: FENTANYL 25 MCG TD (04:22)
[2023-06-06] MEDS ORDERED: TOPROL XL 25MG25 MG PO (04:22)
[2023-06-06] MEDS ORDERED: AYR SALINE MIST50 ML NS (04:23)
[2023-06-06] MEDS ORDERED: REFRESH TEARS 330 ML OP (04:23)
[2023-06-06] MEDS ORDERED: DENTIVA1 LOZ BC (04:24)
[2023-06-06] MEDS ORDERED: REQUIP 0.5MG0.5 MG PO (04:26)
[2023-06-06] MEDS ORDERED: ASPERCREME1 EACH TP (04:26)
[2023-06-06] MEDS ORDERED: TAMBOCOR 1100 MG/TAB PO (04:27)
[2023-06-06] MEDS ORDERED: TRIAMCINOLONE A15 G2 TP (04:28)
[2023-06-06] MEDS ORDERED: CORTIZONE-10 MAXIM11 TP (04:29)
[2023-06-06] MEDS ORDERED: NEURONTIN400 MG/CAP PO (04:29)
--- NOTE | 2023-06-06 04:30 | NUR ---
RECEIVED PATIENT FROM THE ED VIA A STRETCHER. THE PATIENT WAS ON BIPAP IN THE ED AND FOR TRANSPORT HAS ARRIVED VIA NON-REBREATHER MASK AT 15L. SHE DOES NOT APPEAR TO BE IN ANY DISTRESS. SHE IS ALERT AND ORIENTED AND PLEASANT. SHE HAS A PUREWICK IN PLACE WITH NO URINE OUTPUT AT THIS TIME. THEY DID STRAIGHT CATH HER IN THE ED. SHE HAS 2 WORKING IV'S WITH NO RUNNING FLUIDS AT THIS TIME. NO COMPLAINTS OF PAIN. NO FAMILY AT THE BEDSIDE, YET THEY HAVE ATTEMTED TO CONTACT HER SONS. SHE HAS BELONGINGS AT THE BEDSIDE TO INCLUDE A PHONE. VITAL SIGNS ARE STABLE. CALL TRIMBLE WITH THE PATIENT AND BED ALARM ACTIVATED.
[2023-06-06] MEDS ORDERED: Polyethylene Glycol 3350 17 GM PDS PO PRN (04:45)
[2023-06-06] MEDS ORDERED: Acetaminophen 500 MG TAB PO PRN (04:45)
[2023-06-06] MEDS ORDERED: Sodium Chloride 0.65% Nasal Irrig 45 ML BOTTLE NS PRN (04:45)
[2023-06-06] MEDS ORDERED: oxyCODONE 5 MG TAB PO PRN (04:45)
[2023-06-06] MEDS ORDERED: Melatonin 3 MG TAB PO PRN (04:45)
[2023-06-06] MEDS ORDERED: LR 1,000 ML IV SCH (05:00)
[2023-06-06 05:32] LABS: ARTERIAL BLD GAS O2 SATURATION 96.5 % (92-100); ARTERIAL BLD GAS TCO2 CT 25.4; ARTERIAL BLOOD GAS BASE EXCESS -0.4 (-2-2); ARTERIAL BLOOD GAS HCO3 24.2 meq/L (22-26); ARTERIAL BLOOD GAS PCO2 39.5 mmHg (35-45); ARTERIAL BLOOD GAS PO2 85.6 mmHg (80-100); ARTERIAL BLOOD GAS pH 7.41 (7.35-7.45)
[2023-06-06] MEDS ORDERED: Esomeprazole 40 MG **** subs to Pantoprazole 40 MG PO SCH (07:00)
[2023-06-06] MEDS ORDERED: Formoterol 20 MCG,Budesonide 0.5 MG IH SCH (07:00)
--- NOTE | 2023-06-06 07:00 | NUR ---
REPORT RECEIVED FROM LYDIA MENDEZ. PT RESTING IN BED, VSS ON BIPAP. PT TOLERATES BIPAP WELL. PT IS DROWSY BUT WAKES EASILY. FLUIDS INFUSING TO PERIPHERAL IV IN R AC. PT DENIES NEEDS AT THIS TIME, CALL LIGHT IN REACH.
[2023-06-06] MEDS ORDERED: Albuterol/Ipratropium 3 MG-0.5 MG/3 ML Neb Soln IH SCH ×2 (08:00)
[2023-06-06] MEDS ORDERED: Escitalopram 10 MG TAB PO SCH (09:00)
[2023-06-06] MEDS ORDERED: Fexofenadine 180 MG **** subs to Loratadine 10 MG PO SCH (09:00)
[2023-06-06] MEDS ORDERED: fentaNYL 25 MCG 72 HR PATCH TD SCH (09:00)
[2023-06-06] MEDS ORDERED: Modafinil 100 MG TAB PO SCH (09:00)
[2023-06-06] MEDS ORDERED: VIBEGRON 75 MG PO SCH (09:00)
[2023-06-06] MEDS ORDERED: Gabapentin 400 MG CAP PO SCH (09:00)
[2023-06-06] MEDS ORDERED: Azelastine 0.1% Nasal Spray 30 ML BOTTLE NS SCH (09:00)
[2023-06-06] MEDS ORDERED: [UNRECOGNIZED DRUG - OTHER] PO SCH (09:00)
[2023-06-06] MEDS ORDERED: Loratadine 10 MG TAB PO SCH (09:00)
[2023-06-06] MEDS ORDERED: Polyethylene Glycol 3350 17 GM PDS PO SCH (09:00)
[2023-06-06] MEDS ORDERED: Lidocaine 4% Topical Patch TP SCH (09:00)
[2023-06-06] MEDS ORDERED: Acetaminophen 500 MG TAB PO SCH (09:00)
[2023-06-06] MEDS ORDERED: Allopurinol 300 MG TAB PO SCH (09:00)
[2023-06-06] MEDS ORDERED: Esmolol/Na Chlor 0.9% 250 ML IV SCH (09:45)
[2023-06-06] MEDS ORDERED: Esmolol 10 MG/ML 10 ML VIAL IV ONE (09:45)
[2023-06-06] MEDS ORDERED: Amiodarone 450 MG in D5W Excel 250 ML IV SCH ×2 (10:29→16:29)
--- NOTE | 2023-06-06 12:57 | NUR ---
foster care social worker met with patient to discuss discharge planning. Patient lives in [place] at [facility] in the LTC unit. PCP is Dr. Gordon, pharmacy is [facility]. No issues affording medications. Insurance is Medicare A and B, patient states she was part of the "Medicare hack" so she has a new number. Patient also has BCBS. [facility] on the EMR lists Ellis (whom is ), Nikhil, Amando, Elizabeth and Cyndi as agents but Nikhil is primary. Nikhil P# [phone], Amando P# [phone]. DME is walker and oxygen through [facility]. Patient explained she is confused if she needs to be on 4 liters or 2 liters as two doctors has told her two different things. Patient would like this sorted out prior to discharge so she knows what she should be on. Patient reports normally being independent with dressing herself and going to the bathroom but needs assistance with other ADLS. [facility] transports her to and from appointments. MANDEEP secure emailed updates to [employer]. Discharge plan: [facility]
[2023-06-06] MEDS ORDERED: Montelukast 10 MG TAB PO SCH (21:00)
[2023-06-06] MEDS ORDERED: Pravastatin 20 MG TAB PO SCH (21:00)
[2023-06-06] MEDS ORDERED: rOPINIRole 0.5 MG TAB PO SCH (21:00)
--- NOTE | 2023-06-06 22:15 | NUR ---
PATIENT LAYING IN BED, ALERT AND CALM. CURRENTLY ON AIRVO. PUREWICK EXTERNAL CATHETER IN PLACE. TWO PERIPHERAL IV'S IN RIGHT ARM. LEFT ARM IS RESTRICTED EXTREMITY. NO ACUTE EVENTS.
[2023-06-07] VITALS (961 sets, daily range): BP systolic 134–180; BP diastolic 73–90; PULSE 53–65; TEMP 97.3–99; O2SAT 30–99
[2023-06-07 04:24] LABS: BASO % 0.1 % (0.0-2.0); GRAN # 6.1 K/mm3 (1.4-6.5); GRAN % 86.8 % (42.2-75.2); LYMPH # 0.4 K/mm3 (1.2-3.4); LYMPH % 5.8 % (20.0-51.0); MEAN CELL VOLUME 101 fl (80.0-100.0); MEAN CORPUSCULAR HEMOGLOBIN 32 pg (27-31); MEAN CORPUSCULAR HGB CONC 32 g/dl (33.0-37.0); MEAN PLATELET VOLUME 10.8 fl (7.4-10.4); MONO # 0.5 K/mm3 (0.1-0.6); MONO % 6.7 % (1.7-9.3); PLATELET COUNT 188 K/mm3 (130-400); REDCELL DISTRIBUTION WIDTH-CV 14.5 % (11.5-14.5)
[2023-06-07 04:29] LABS: HEMATOCRIT 31.2 % (37.0-47.0)
[2023-06-07 04:40] LABS: CALCIUM 8.4 mg/dL (8.4-10.2); CREATININE, serum 0.74 mg/dL (0.57-1.11); POTASSIUM 4.5 mEq/L (3.5-4.5)
--- NOTE | 2023-06-07 07:00 | NUR ---
REPORT RECEIVED FROM LYDIA HILL. PT RESTING IN BED, VSS. PT TOLERATING BIPAP WELL. FLUIDS INFUSING TO PERIPHERAL R AC IV. NO NEEDS AT THIS TIME, CALL LIGHT IN REACH.
--- NOTE | 2023-06-07 19:47 | NUR ---
Received report from LYDIA Ward. Pt is alert and on airvo. Pt is currently eating their dinner. Pt's vitals are stable at this time. Pt has the call light within reach. Pt is on fluids at this time. Pt has a purewick in place. Will continue with pt care.
[2023-06-07 22:45] LABS: ARTERIAL BLD GAS O2 SATURATION 89.6 % (92-100); ARTERIAL BLD GAS TCO2 CT 26.5; ARTERIAL BLOOD GAS PCO2 46.8 mmHg (35-45); ARTERIAL BLOOD GAS PO2 61.3 mmHg (80-100); ARTERIAL BLOOD GAS pH 7.35 (7.35-7.45)
[2023-06-07] MEDS ORDERED: LORazepam 2 MG/ML 1 ML VIAL IV ONE (23:00)
[2023-06-07] MEDS ORDERED: Furosemide 40 MG/4 ML VIAL IV ONE (23:15)
[2023-06-07] MEDS ORDERED: Naloxone 0.4 MG/ML VIAL IV PRN (23:30)
[2023-06-07] MEDS ORDERED: fentaNYL 100 ML IV SCH (23:30)
[2023-06-08] VITALS (1377 sets, daily range): BP systolic 127–169; BP diastolic 48–97; PULSE 47–100; TEMP 97–98.3; O2SAT 88–100
[2023-06-08] MEDS ORDERED: fentaNYL 50 MCG/ML 2 ML VIAL IV SCH (00:15)
[2023-06-08] MEDS ORDERED: Succinylcholine PF 200 MG/10 ML SYRINGE IV SCH (00:18)
--- NOTE | 2023-06-08 01:11 | NUR ---
PT INTUBATED AT 0019 BY WINTER INTERN. INTUBATED WITH 7.5 23 @ LIP. POSITIVE COLOR CHANGE, BILATERAL BREATH SOUNDS. WILL OBTAIN ABG.
[2023-06-08 01:39] LABS: ARTERIAL BLD GAS O2 SATURATION 97.2 % (92-100); ARTERIAL BLD GAS TCO2 CT 26.7; ARTERIAL BLOOD GAS BASE EXCESS 0.5 (-2-2); ARTERIAL BLOOD GAS HCO3 25.4 meq/L (22-26); ARTERIAL BLOOD GAS PCO2 42.2 mmHg (35-45)
[2023-06-08 04:44] LABS: BASO % 0.1 % (0.0-2.0); EOS # 0.1 K/mm3 (0.0-0.7); EOS % 0.6 % (0.0-4.0); GRAN # 6.9 K/mm3 (1.4-6.5); HEMOGLOBIN 10.1 g/dl (12.5-16.0); LYMPH # 0.4 K/mm3 (1.2-3.4); MEAN CELL VOLUME 101 fl (80.0-100.0); MEAN CORPUSCULAR HEMOGLOBIN 32 pg (27-31); MEAN CORPUSCULAR HGB CONC 32 g/dl (33.0-37.0); MEAN PLATELET VOLUME 10.6 fl (7.4-10.4); MONO # 0.5 K/mm3 (0.1-0.6); MONO % 6.8 % (1.7-9.3); PLATELET COUNT 230 K/mm3 (130-400); RED BLOOD COUNT 3.14 M/mm3 (4.10-5.30); REDCELL DISTRIBUTION WIDTH-CV 14.6 % (11.5-14.5)
[2023-06-08 04:50] LABS: HEMATOCRIT 31.8 % (37.0-47.0)
[2023-06-08 04:57] LABS: CALCIUM 8.6 mg/dL (8.4-10.2); CREATININE, serum 0.84 mg/dL (0.57-1.11); MAGNESIUM 2.2 mg/dL (1.6-2.6); PHOSPHOROUS 3.2 mg/dL (2.3-4.7); POTASSIUM 3.9 mEq/L (3.5-4.5)
[2023-06-08 05:41] LABS: ARTERIAL BLD GAS O2 SATURATION 91.2 % (92-100); ARTERIAL BLD GAS TCO2 CT 28.5; ARTERIAL BLOOD GAS PCO2 48.5 mmHg (35-45); ARTERIAL BLOOD GAS PO2 62.8 mmHg (80-100); ARTERIAL BLOOD GAS pH 7.36 (7.35-7.45)
--- NOTE | 2023-06-08 06:21 | NUR ---
Sedation vacation not done due to pt being intubated during this shift.
--- NOTE | 2023-06-08 06:42 | NUR ---
Pt was on airvo at the beginning of the shift. After the pt pt ate and was doing oral care the pt's SPO2 dropped into the 70's and was not able to bring it back up. RT was called to put pt on BiPAP. Pt was put on 100% FiO2 and pt slowly went up but would sit 87%-90%. Pt felt SOB and still did not feel better. [facility] was called and hospitalist was called. Gave ativan and lasix. That still didn't help. RR would range from 21-35. Hospitalist talked to [facility] and decided she needed to be intubated. Pt was alert and oriented x4. Pt verbal consented to being intubated. Anesthesia arrived on the unit at 2352. Anesthesia was Shalini Viveros CRNA. Timeout was done at 0010. Fentanyl, Propofol and Succinylcholine were give by SHIRA Loya. Fentanyl 50 mcg at 0015. Propofol 90 mcg at 0015. Succinylcholine 100 mg at 0018. Pt intubated at 0019 and color change was seen at 0019. ET Tube is 7.5 placed at 21 at lips and lung sounds were heard bilat. At 0029 a [address] 59 at teeth. ET Tube was verified via Chest X-RAY. Vent settings RR 22, TV 350, FiO2 100%, Peep 5, AC mode. 16 Tanzanian ying catheter was placed at 0100. Now the pt's ET Tube is 22 at Teeth and OG 57 at teeth. Pt is intubated and grimances with painful stimuli, pt does not follow commands. Pt has an OG in place on LIS. Pt has a ying in place with no kinks in tubing and had adequate urine output. Pt is currently on propofol, fentanyl, and ABX. Will give report to day shift nurse.
--- NOTE | 2023-06-08 07:00 | NUR ---
Report received from LYDIA Tee; patient currently intubated and sedated with fentanyl and propofol running for sedation through a peripheral IV. Patient also has zosyn running through patient's other peripheral line. Patient has a Stark catheter in place, ET tube, and OG tube set to LIS. Patient has no other lines or tubes in place at this time. Patient is responsive this morning and vital signs are within normal limits with the exception of heart rate which has been bradycardic in the mid 50s.
[2023-06-08] MEDS ORDERED: Pantoprazole 40 MG in NS 10 ML IV SCH (09:00)
[2023-06-08] MEDS ORDERED: Doxycycline Hyclate 100 MG in NS 150 ML IV SCH (09:45)
[2023-06-08] MEDS ORDERED: LORazepam 2 MG/ML 1 ML VIAL IV PRN (10:00)
[2023-06-08] MEDS ORDERED: Scopolamine 1 MG Delivered 3-Day PATCH TD SCH (10:00)
[2023-06-08] MEDS ORDERED: Morphine 4 MG/ML VIAL IV PRN (10:00)
[2023-06-08] MEDS ORDERED: Glucagon 1 MG VIAL IM PRN (11:00)
[2023-06-08] MEDS ORDERED: Dextrose 50% Water 25 GM/50 ML SYRINGE IV PRN (11:00)
[2023-06-08] MEDS ORDERED: Dextrose (Glucose) 15 GM (4 x 3.75 GM) Chewable TABLET PACK PO PRN (11:00)
[2023-06-08] MEDS ORDERED: Insulin Lispro (HumaLOG) SQ SCH (12:00)
--- NOTE | 2023-06-08 17:00 | NUR ---
Sedation vacation not done this afternoon as patient has been responsive and responds to stimuli appropriately.
--- NOTE | 2023-06-08 19:15 | NUR ---
Received report from LYDIA Ring. Pt is currently intubated and lying in bed. Pt's vitals are stable at this time. Pt on propofol, fentanyl, and ABX. Pt has an OG in with tube feeds running at this time. Pt has a ying catheter with no kinks in tubing. Will continue with pt care.
--- NOTE | 2023-06-08 21:00 | NUR ---
FiO2 REDUCED TO 55%.
[2023-06-09] VITALS (1282 sets, daily range): BP systolic 125–162; BP diastolic 54–72; PULSE 74–93; TEMP 98–98.6; O2SAT 92–100
[2023-06-09 04:36] LABS: GRAN # 4.4 K/mm3 (1.4-6.5); GRAN % 84.5 % (42.2-75.2); LYMPH # 0.4 K/mm3 (1.2-3.4); LYMPH % 6.7 % (20.0-51.0); MEAN CELL VOLUME 104 fl (80.0-100.0); MEAN CORPUSCULAR HGB CONC 31 g/dl (33.0-37.0); MEAN PLATELET VOLUME 10.7 fl (7.4-10.4); MONO # 0.4 K/mm3 (0.1-0.6); PLATELET COUNT 217 K/mm3 (130-400); RED BLOOD COUNT 3.09 M/mm3 (4.10-5.30); REDCELL DISTRIBUTION WIDTH-CV 14.7 % (11.5-14.5)
[2023-06-09 04:41] LABS: HEMATOCRIT 32.1 % (37.0-47.0); HEMOGLOBIN 9.9 g/dl (12.5-16.0); MEAN CORPUSCULAR HEMOGLOBIN 32 pg (27-31)
[2023-06-09 04:46] LABS: CREATININE, serum 0.64 mg/dL (0.57-1.11); MAGNESIUM 2.5 mg/dL (1.6-2.6); PHOSPHOROUS 2.5 mg/dL (2.3-4.7); POTASSIUM 3.8 mEq/L (3.5-4.5)
[2023-06-09 05:41] LABS: ARTERIAL BLD GAS O2 SATURATION 95.2 % (92-100); ARTERIAL BLD GAS TCO2 CT 27.2; ARTERIAL BLOOD GAS BASE EXCESS 1.6 (-2-2); ARTERIAL BLOOD GAS HCO3 25.9 meq/L (22-26); ARTERIAL BLOOD GAS PCO2 39.8 mmHg (35-45); ARTERIAL BLOOD GAS PO2 79.2 mmHg (80-100); ARTERIAL BLOOD GAS pH 7.43 (7.35-7.45)
--- NOTE | 2023-06-09 06:02 | NUR ---
Did sedation vacation. Pt starts to over breath the vent and alarm the vent. Pt becomes more restless. Before sedation vacation pt would follow commands and open eyes upon speech. Sedation was put back to the previous rate.
--- NOTE | 2023-06-09 06:14 | NUR ---
Pt had an uneventful night. Pt's vitals were stable throuhgout the night. Pt is currently intubated and lying in bed with the bed turn on. Pt got repositioned frequently. Pt on propofol, fentanyl, and zosyn. Pt has an OG with tube feeds running. Stark in place with no kinks in tubing and and had adequate urine output. Will give report to day shift nurse.
--- NOTE | 2023-06-09 07:00 | NUR ---
Report received from LYDIA Tee; patient remains intubated and sedated with propofol and fentanyl running through her right upper arm midline. Patient has ET, OG, and Stark catheter in place; no other lines or tubes are in place at this time. Patient's vital signs are within normal limits this morning, with the exception of heart rate which can be bradycardic and in the 50s. Patient responds appropriately to stimuli and will follow commands.
[2023-06-09] MEDS ORDERED: fentaNYL Patch Removal/Drugbuster TD SCH (09:00)
[2023-06-09] MEDS ORDERED: fentaNYL 100 ML IV SCH (09:30)
--- NOTE | 2023-06-09 17:00 | NUR ---
Sedation vacation not done today as patient is resting comfortably but is also responsive and will open her eyes and follow commands.
--- NOTE | 2023-06-09 20:14 | NUR ---
PT ON LOW DOSE SEDATION. NO SIGNIFICANT CHANGES TODAY. PT STABLE ON ROUNDS. NO SIGN OF DISTRESS AT THIS TIME. CONTINUE PLAN OF CARE.
[2023-06-10] VITALS (1204 sets, daily range): BP systolic 120–154; BP diastolic 44–86; PULSE 51–96; TEMP 97.2–98.4; O2SAT 83–100
--- NOTE | 2023-06-10 01:06 | NUR ---
REMAINS STABLE ON ROUNDS. NO SIGN OF DISTRESS AT THIS TIME. CONTINUE WITH PLAN OF CARE.
--- NOTE | 2023-06-10 04:40 | NUR ---
DURING BATH FENTANYL PATCH WAS FOUND ON THE PT'S BACK. PATCH WAS DATED 06/06/23. PATCH WAS REMOVED AND DISCARDED. DISCARD WITNESSED BY CHARGE NURSE JULIUS CHILDERS. UNABLE TO WASTE IN COMPUTER PATCH WAS PLACED AT AN OUTSIDE FACILITY. SCOPE PATCH WAS FOUND ON THE PTS CHEST. PATCH CAME OFF AND WAS MOVED TO PTS RIGHT NECK AREA, BELOW THE EAR. PT REMAINS STABLE ON ROUNDS. NO SIGN OF DISTRESS AT THIS TIME. CONTINUE WITH PLAN OF CARE.
[2023-06-10 06:06] LABS: ARTERIAL BLD GAS O2 SATURATION 93.3 % (92-100); ARTERIAL BLD GAS TCO2 CT 29.4; ARTERIAL BLOOD GAS BASE EXCESS 3.2 (-2-2); ARTERIAL BLOOD GAS HCO3 28.1 meq/L (22-26); ARTERIAL BLOOD GAS PO2 68.4 mmHg (80-100); ARTERIAL BLOOD GAS pH 7.42 (7.35-7.45)
[2023-06-10 06:06] LABS: MAGNESIUM 2.6 mg/dL (1.6-2.6); PHOSPHOROUS 2.4 mg/dL (2.3-4.7)
--- NOTE | 2023-06-10 06:36 | NUR ---
PT REMAINS STABLE ON ROUNDS. NO SIGN OF DISTRESS AT THIS TIME. CONTINUE PLAN OF CARE.
--- NOTE | 2023-06-10 07:24 | NUR ---
Patient is laying in bed, no noted distress. Arouses and follows commands when prompted. PERRLA present, withdrawls from stimuli. Prop/Fent infusing appropriately, ying draining without complication. Pivot infusing in OG tube. OG and ETT secured.
[2023-06-10 08:09] LABS: CALCIUM 7.9 mg/dL (8.4-10.2); CREATININE, serum 0.63 mg/dL (0.57-1.11); POTASSIUM 4.1 mEq/L (3.5-4.5)
--- NOTE | 2023-06-10 19:22 | NUR ---
Received report from LYDIA Colmenares. Pt is intubated and resting in bed. Pt is able to open eyes upon speech. Pt has an OG in place with tube feeds running at goal rate. Pt has a ying in place with no kinks in tubing. Pt has propofol, fentanyl, and zosyn running at this time. Pt's vitals are stable at this time. Will continue with pt care.
[2023-06-11] VITALS (849 sets, daily range): BP systolic 128–175; BP diastolic 40–68; PULSE 61–96; TEMP 97.9–99.3; O2SAT 90–100
[2023-06-11 04:59] LABS: HEMOGLOBIN 10.2 g/dl (12.5-16.0); MEAN CORPUSCULAR HEMOGLOBIN 32 pg (27-31); MEAN CORPUSCULAR HGB CONC 32 g/dl (33.0-37.0); MEAN PLATELET VOLUME 10.3 fl (7.4-10.4); PLATELET COUNT 233 K/mm3 (130-400); REDCELL DISTRIBUTION WIDTH-CV 14.6 % (11.5-14.5)
[2023-06-11 05:04] LABS: HEMATOCRIT 31.8 % (37.0-47.0); MEAN CELL VOLUME 99 fl (80.0-100.0)
[2023-06-11 05:23] LABS: ALBUMIN 2.4 g/dL (3.4-4.8); BILIRUBIN,TOTAL 0.3 mg/dL (0.2-1.2); CALCIUM 7.7 mg/dL (8.4-10.2); CREATININE, serum 0.66 mg/dL (0.57-1.11); MAGNESIUM 2.6 mg/dL (1.6-2.6); PHOSPHOROUS 2.6 mg/dL (2.3-4.7); POTASSIUM 4.4 mEq/L (3.5-4.5); TOTAL PROTEIN 5.9 g/dl (6.2-8.1)
--- NOTE | 2023-06-11 05:42 | NUR ---
Sedation vacation not done. Pt is getting weaned off slowly for the CPAP trial.
[2023-06-11 05:50] LABS: ARTERIAL BLD GAS O2 SATURATION 92.7 % (92-100); ARTERIAL BLD GAS TCO2 CT 31.2; ARTERIAL BLOOD GAS BASE EXCESS 5.3 (-2-2); ARTERIAL BLOOD GAS HCO3 29.8 meq/L (22-26); ARTERIAL BLOOD GAS PCO2 43.5 mmHg (35-45); ARTERIAL BLOOD GAS PO2 63.6 mmHg (80-100); ARTERIAL BLOOD GAS pH 7.45 (7.35-7.45)
[2023-06-11 06:07] LABS: BAND 4 % (0-10); LYMPHOCYTE 3 % (20.0-51.0); METAMYELOCYTE 1 % (0-0); NEUTROPHILS 83 % (42.0-75.2)
[2023-06-11 06:09] LABS: HYPOCHROMIA 1+; PLATELET ESTIMATE NORMAL (NORMAL)
--- NOTE | 2023-06-11 06:14 | NUR ---
Pt had an uneventful night. Pt's vitals were stable throughout the night. Pt is intubated and resting in bed at this time. Pt is on a small amount of propofol and fentanyl at this time. ABX's are also running. Pt has an OG in place and was clamped at 0400 for the weaning trial. Stark is in place with no kinks in tubing and adequate urine output. Pt follows commands and opens eyes upon speech. Will give report to day shift nurse.
--- NOTE | 2023-06-11 07:00 | NUR ---
REPORT RECIEVED FROM LYDIA ESPITIA. PT HAD NO ACUTE EVENTS OVERNIGHT. REMAINS INTUBATED AND ON SEDATION. PT ABLE TO WAKE WITH EASE AND FOLLOW COMMANDS. BILATERAL SOFT WRIST RESTRAINTS IN PLACE FOR LINE PROTECTION. MIDLINE TO RIGHT UPPER ARM.
--- NOTE | 2023-06-11 08:25 | NUR ---
0825- SEDATION PLACED IN STAND-BY FOR BREATHING TRIAL 0830- PT PLACED ON BREATHING TRIAL BY MARIA DEL CARMEN BRUNER. DR. DORSEY WOULD LIKE PT TO TRIAL FOR AN HOUR. 0938- PT PLACED BACK ON ASSIST CONTROL BY MARIA DEL CARMEN BRUNER. SEDATION RESTARTED AT PREVIOUS RATE BY THIS RN.
[2023-06-11] MEDS ORDERED: Pantoprazole 40 MG in NS 10 ML IV SCH (09:45)
--- NOTE | 2023-06-11 10:06 | NUR ---
Initial visit; Patient and her son Amando were receptive to Wastewater Project Engineer praying with them. Wastewater Project Engineer prayed for healing and hopes that they will share wayne Hoahaoism Prayers from the "Book of Common Prayer."
--- NOTE | 2023-06-11 15:49 | NUR ---
conversion worker secure email clinical updates to [facility].
--- NOTE | 2023-06-11 19:10 | NUR ---
Received report from LYDIA Dickson. Pt is intubated and restin in bed. Pt HR was in the 80's and then dropped to 27 and bumped up to 40's. ECNELLA was notified and inquired about possibly changing propofol to versed. Pt's vitals are stable at this time. Pt has propofol, fentanyl, and zosyn running at this time. OG is in place with tube feeds running at goal rate. Stark in place with no kinks in tubing. Will continue to monitor pt.
--- NOTE | 2023-06-11 19:15 | NUR ---
PT'S HEART RATE DROPPED INTO 20'S AND 30'S FOR ABOUT 10 SECONDS. HEART RATE NOW MAINTAINING IN MID 40'S. PT HAS STRONG PULSE AND BP REMAINS STABLE. PT ABLE TO WAKE WITH EASE AND FOLLOW COMMANDS. THIS NURSE CONTACTED TELE ICU AND SPOKE WITH DR. HURTADO. WILL LIKELY D/C PROPOFOL AND PLACE ORDER FOR VERSED ONCE SHE HAS REVIEWED CHART.
[2023-06-12] VITALS (820 sets, daily range): BP systolic 118–162; BP diastolic 35–63; PULSE 53–92; TEMP 97.7–99.1; O2SAT 74–100
[2023-06-12 05:25] LABS: ARTERIAL BLOOD GAS BASE EXCESS -1.7 (-2-2); ARTERIAL BLOOD GAS PCO2 33.4 mmHg (35-45); ARTERIAL BLOOD GAS PO2 70.9 mmHg (80-100); ARTERIAL BLOOD GAS pH 7.44 (7.35-7.45)
--- NOTE | 2023-06-12 05:35 | NUR ---
Sedation vacation not done. Pt is getting weaned slowly for the weaning trial.
--- NOTE | 2023-06-12 05:56 | NUR ---
Pt has been having more frequent periods of when the HR will go from 80's and drop to 30's and then go to 50's then pop back up to the 80's. Pulses were felt and pt would wake by speech. Called ROGER at 0502 and the Doctor and nurse were busy at that time, and left a note for the person who answered the phone, still no call back.
--- NOTE | 2023-06-12 06:13 | NUR ---
Pt had an uneventful night. Pt intubated and resting in bed, pt follows commands and wakes upon speech. Pt has an OG and tube feeds are running at goal rate. Stark in place with no kinks in tubing and adequate urine output. Pt's vitals have been stable throughout the night. HR has been dropping from 80's to 30's a few times through the night, [facility] was called. Pulses were felt. Will give report to day shift nurse.
[2023-06-12 06:46] LABS: HEMOGLOBIN 10.1 g/dl (12.5-16.0); MEAN CELL VOLUME 100 fl (80.0-100.0); MEAN CORPUSCULAR HEMOGLOBIN 32 pg (27-31); MEAN CORPUSCULAR HGB CONC 32 g/dl (33.0-37.0); MEAN PLATELET VOLUME 10.6 fl (7.4-10.4); PLATELET COUNT 224 K/mm3 (130-400); RED BLOOD COUNT 3.21 M/mm3 (4.10-5.30); REDCELL DISTRIBUTION WIDTH-CV 14.6 % (11.5-14.5)
[2023-06-12 06:50] LABS: HEMATOCRIT 32.1 % (37.0-47.0)
[2023-06-12 07:05] LABS: CALCIUM 7.6 mg/dL (8.4-10.2); CREATININE, serum 0.61 mg/dL (0.57-1.11); POTASSIUM 4.6 mEq/L (3.5-4.5)
--- NOTE | 2023-06-12 07:16 | NUR ---
REPORT RECEIVED FROM LYDIA ESPITIA. PT HAD SOME BRADYCARDIC EVENTS THROUGH OUT SHIFT; HEART RATE DROPPED LOW 30'S. CURRENTLY SITTING IN 60'S. PT'S BP REMAINED STABLE THROUGH OUT EVENTS. PT REMAINS INTUBATED AND SEDATED; TOLERATING VENT WELL. BILATERAL SOFT WRIST RESTRAINTS IN PLACE FOR LINE PROTECTION. FC TO DEPENDENT DRAINAGE. PT APPEARS TO BE RESTING COMFORTABLY AND IS ABLE TO FOLLOW COMMANDS WITH EASE.
[2023-06-12 07:52] LABS: BAND 9 % (0-10); LYMPHOCYTE 7 % (20.0-51.0); METAMYELOCYTE 3 % (0-0); NEUTROPHILS 73 % (42.0-75.2); PLATELET ESTIMATE NORMAL (NORMAL)
--- NOTE | 2023-06-12 08:43 | NUR ---
0843- SEDATION PLACED IN STANDBY AT THIS TIME AND PT PLACED ON SPONTANEOUS BREATHING TRIAL BY MARIA DEL CARMEN BRUNER. 0923- BREATHING TRIAL ENDED AND PLACED PLACED BACK ON ASSIST CONTROL MODE BY MARIA DEL CARMEN BRUNER. 0939- SEDATION RESTARTED BY THIS RN AT PREVIOUS RATE.
[2023-06-12] MEDS ORDERED: dexAMETHasone 4 MG TAB PO SCH (09:02)
--- NOTE | 2023-06-12 10:55 | NUR ---
Follow-up: offered a special prayer from the "Book of Common Prayer" for Светлана this morning. A different son was with her this morning and thanked for looking in on his mom.
[2023-06-12] MEDS ORDERED: Midazolam 2 MG/2 ML VIAL IV PRN (19:45)
--- NOTE | 2023-06-12 23:55 | NUR ---
PT IS LYING IN THE BED ON THE VENTILATOR. SHE DOES OPEN EYES TO VOICE AND DOES FOLLOW COMMANDS. SHE HAS A PINTO CATHETER DRAINING URINE. SHE HAS A RIGHT UPPER MIDLINE WITH PROPOFOL AND FENTANYL INFUSING. SHE HAS AN OG TUBE IN PLACE RECEIVING TUBE FEED AND FREE WATER FLUSHES. HER VITAL SIGNS ARE STABLE. SHE DOES NOT APPEAR TO BE IN ANY DISTRESS. SHE HAS NO VISITORS AT THE BEDSIDE AT THIS TIME.
[2023-06-13] VITALS (1258 sets, daily range): BP systolic 110–164; BP diastolic 31–75; PULSE 62–95; TEMP 98.5–100.6; O2SAT 84–100
[2023-06-13 06:11] LABS: HEMOGLOBIN 10.8 g/dl (12.5-16.0); MEAN CELL VOLUME 101 fl (80.0-100.0); MEAN CORPUSCULAR HEMOGLOBIN 32 pg (27-31); MEAN CORPUSCULAR HGB CONC 31 g/dl (33.0-37.0); PLATELET COUNT 265 K/mm3 (130-400); RED BLOOD COUNT 3.42 M/mm3 (4.10-5.30); REDCELL DISTRIBUTION WIDTH-CV 15.1 % (11.5-14.5)
[2023-06-13 06:18] LABS: HEMATOCRIT 34.4 % (37.0-47.0)
[2023-06-13 06:28] LABS: CALCIUM 7.5 mg/dL (8.4-10.2); CREATININE, serum 0.61 mg/dL (0.57-1.11); POTASSIUM 4.1 mEq/L (3.5-4.5)
[2023-06-13 08:03] LABS: ARTERIAL BLD GAS O2 SATURATION 90.1 % (92-100); ARTERIAL BLD GAS TCO2 CT 27.5; ARTERIAL BLOOD GAS BASE EXCESS 2.8 (-2-2); ARTERIAL BLOOD GAS HCO3 26.4 meq/L (22-26); ARTERIAL BLOOD GAS PCO2 37.1 mmHg (35-45); ARTERIAL BLOOD GAS PO2 54.7 mmHg (80-100); ARTERIAL BLOOD GAS pH 7.47 (7.35-7.45)
--- NOTE | 2023-06-13 08:15 | NUR ---
Patient has Prop/Fent on standby, ventilator is on spontaneous settings. She is currently at 92% oxygen per CRM. Overall she is laying in bed, does not seem to be in distress. Restraints on, ying draining appropriately, and tube feedings stopped. She is able to follow commands and is acting appropriately. Will continue to monitor for significant changes.
--- NOTE | 2023-06-13 10:42 | NUR ---
Patient extubated at 0925 with RT and family present. 4 liters on oxymask, did not tolerate well, oxygen was consistent in high 80's. Switched to BiPap at 1005, settings 14/6, 65% oxygen and 20 RR. Seems to be tolerating at the moment, patient is still sleepy, yawning, and is weak. Oxygen is 91-93% on these settings.
--- NOTE | 2023-06-13 11:05 | NUR ---
slurry worker notes patient was extubated and be monitored following this. MANDEEP emailed clinical updates to Pernell at [facility]. Discharge Plan: return to [facility]
[2023-06-13] MEDS ORDERED: Heparin 5,000 UNITS/ML 1 ML VIAL IV PRN (20:00)
[2023-06-13] MEDS ORDERED: Heparin/D5W 250 ML IV SCH (20:00)
[2023-06-13 21:45] LABS: INR 1.5 (0.8-3.0)
[2023-06-13 21:48] LABS: PARTIAL THROMBOPLASTIN TIME 24.8 SECONDS (26.0-37.0)
[2023-06-14] VITALS (272 sets, daily range): BP systolic 167–184; BP diastolic 70–92; PULSE 104–126; TEMP 98.6; O2SAT 30–99
--- NOTE | 2023-06-14 02:20 | NUR ---
PT WAS TACHYPNEIC AND ANXIOUS. RESPIRATORY CALLED SHE STATED SHE WAS HAVING TROUBLE BREATHING. SHE WAS GIVEN SOME ATIVAN AND A BREATHING TREATMENT. SHE DID GO INTO A TACHY ATRIAL RHYTHM AND THEN AFIB WITH RVR. MULTIPLE DOSES OF LOPRESSER WERE GIVEN AND A CARDIZEM DRIP STARTED. PT REMAINS ANXIOUS AND TACHYPNEIC. HER SONS WERE CALLED TO COME SEE HER. RONEL Diamond NP SPOKE WITH THE FAMILY AND JARAD GOLDEN AND THE DECISION WAS MADE TO KEEP HER COMFORTABLE.
[2023-06-14] MEDS ORDERED: Metoprolol Tartrate 5 MG/5 ML VIAL IV SCH (02:45)
[2023-06-14 03:12] LABS: ARTERIAL BLD GAS O2 SATURATION 93.9 % (92-100); ARTERIAL BLD GAS TCO2 CT 28.6; ARTERIAL BLOOD GAS BASE EXCESS 2.1 (-2-2); ARTERIAL BLOOD GAS HCO3 27.2 meq/L (22-26); ARTERIAL BLOOD GAS PCO2 44.2 mmHg (35-45); ARTERIAL BLOOD GAS PO2 72.1 mmHg (80-100); ARTERIAL BLOOD GAS pH 7.41 (7.35-7.45)
--- NOTE | 2023-06-14 03:37 | NUR ---
PT IN RESP DISTRESS, RN AND RT AT BEDSIDE. NOC HOSPITALIST NOTIFIED
[2023-06-14 03:41] LABS: HEMATOCRIT 39.4 % (37.0-47.0); HEMOGLOBIN 12.7 g/dl (12.5-16.0); MEAN CELL VOLUME 98 fl (80.0-100.0); MEAN CORPUSCULAR HEMOGLOBIN 32 pg (27-31); MEAN CORPUSCULAR HGB CONC 32 g/dl (33.0-37.0); MEAN PLATELET VOLUME 10.1 fl (7.4-10.4); PLATELET COUNT 287 K/mm3 (130-400); RED BLOOD COUNT 4.01 M/mm3 (4.10-5.30); REDCELL DISTRIBUTION WIDTH-CV 14.9 % (11.5-14.5)
[2023-06-14 04:10] LABS: BAND 3 % (0-10); EOSINOPHIL 2 % (0-4); LYMPHOCYTE 9 % (20.0-51.0); NEUTROPHILS 80 % (42.0-75.2); PLATELET ESTIMATE NORMAL (NORMAL)
[2023-06-14 04:19] LABS: CALCIUM 8.2 mg/dL (8.4-10.2); CREATININE, serum 0.57 mg/dL (0.57-1.11); MAGNESIUM 2.4 mg/dL (1.6-2.6); POTASSIUM 4.1 mEq/L (3.5-4.5)
[2023-06-14] MEDS ORDERED: Albuterol 0.083% Neb Soln 2.5 MG/3 ML UD IH PRN (04:45)
[2023-06-14] MEDS ORDERED: Haloperidol Lactate 5 MG/ML VIAL IV PRN (04:45)
[2023-06-14] MEDS ORDERED: Ondansetron 4 MG/2 ML VIAL IV PRN (04:45)
[2023-06-14] MEDS ORDERED: Morphine Oral Concentrate 20 MG/ML UD SL PRN (04:45)
[2023-06-14] MEDS ORDERED: Glycopyrrolate 0.2 MG/ML 1 ML VIAL IV PRN (04:45)
[2023-06-14] MEDS ORDERED: Morphine 4 MG/ML VIAL IV PRN (04:45)
[2023-06-14] MEDS ORDERED: Scopolamine 1 MG Delivered 3-Day PATCH TD SCH (04:45)
[2023-06-14] MEDS ORDERED: LORazepam 2 MG/ML 1 ML VIAL IV PRN (04:45)
[2023-06-14] MEDS ORDERED: Atropine 1% Ophth Soln 2 ML BOTTLE SL PRN (04:45)
[2023-06-14] MEDS ORDERED: Morphine 4 MG/ML VIAL IV ONE ×2 (05:00→05:45)
[2023-06-14] MEDS ORDERED: LORazepam 2 MG/ML 1 ML VIAL IV ONE ×2 (05:00→05:45)
[2023-06-14] MEDS ORDERED: HYDROmorphone 0.5 MG/0.5 ML SYRINGE IV ONE (05:45)
--- NOTE | 2023-06-14 06:01 | NUR ---
PT IS RESTING IN THE BED WITH HER EYES CLOSED. SHE DOES RESPOND APPROPRIATELY WHEN SPOKEN TOO. SHE DOES APPEAR TO BE VERY WEAK AND HAS A HARD TIME LIFTING UP HER ARMS. SHE IS ON AIRVO AND IS NOT STRUGGLING TO BREATH AT THIS TIME. SHE HAS A PINTO CATHETER DRAINING URINE. SHE HAS A RIGHT UPPER ARM MIDLINE WITH NOTHING INFUSING AT THIS TIME. HER BLOOD PRESSURE IS ELEVATED. WILL REACH OUT TO THE PROVIDER FOR HER BLOOD PRESSURE. PT CALL TRIMBLE IS BESIDE HER.
--- NOTE | 2023-06-14 06:33 | NUR ---
[facility] notified of patient . Spoke with Tamiko. Patient not a candidate for donation at this time. [facility] referral number [id number]. Body can be released to home.
--- NOTE | 2023-06-14 06:47 | NUR ---
ch. was called into do prayer over pt. Pt's family was in the room. ch offered a prayer. Family thanked the ch. for prayer and coming in.
--- NOTE | 2023-06-14 07:45 | NUR ---
home picked up body at 0730. Lines removed by shoe treer RNNickie.
== END 2023-06-14 07:30 | disposition expired | DRG 870 ==
LOC: COL.ER 00:55 → ICU 03:37
PROVIDERS: Emergency Medicine; Internal Medicine; Internal Medicine Pulmonary Disease; Nurse Practitioner Family; ADMIT Internal Medicine
PROC: 5A09457 Assistance with Respiratory Ventilation, 24-96 Consecutive Hours, Continuous Positive Airway Pressure (ICD-10-PCS; 2023-06-06)
PROC: 0BH17EZ Insertion of Endotracheal Airway into Trachea, Via Natural or Artificial Opening (ICD-10-PCS; principal; 2023-06-08)
PROC: 5A1955Z Respiratory Ventilation, Greater than 96 Consecutive Hours (ICD-10-PCS; 2023-06-08)
PROC: 05H733Z Insertion of Infusion Device into Right Axillary Vein, Percutaneous Approach (ICD-10-PCS; 2023-06-08)
PROC: 5A09357 Assistance with Respiratory Ventilation, Less than 24 Consecutive Hours, Continuous Positive Airway Pressure (ICD-10-PCS; 2023-06-13)
DX: A41.9 Sepsis, unspecified organism (principal); I21.A1 Myocardial infarction type 2; J96.21 Acute and chronic respiratory failure with hypoxia; J18.1 Lobar pneumonia, unspecified organism; I48.20 Chronic atrial fibrillation, unspecified; E87.20 Acidosis, unspecified; E87.0 Hyperosmolality and hypernatremia; Z66 Do not resuscitate; G47.33 Obstructive sleep apnea (adult) (pediatric); Z20.822 Contact with and (suspected) exposure to COVID-19; R79.89 Other specified abnormal findings of blood chemistry; E78.5 Hyperlipidemia, unspecified; I25.10 Atherosclerotic heart disease of native coronary artery without angina pectoris; K21.9 Gastro-esophageal reflux disease without esophagitis; G25.81 Restless legs syndrome; M19.90 Unspecified osteoarthritis, unspecified site; M79.7 Fibromyalgia; Z96.652 Presence of left artificial knee joint; I87.2 Venous insufficiency (chronic) (peripheral); I10 Essential (primary) hypertension; J45.909 Unspecified asthma, uncomplicated; H26.9 Unspecified cataract; I08.1 Rheumatic disorders of both mitral and tricuspid valves; E87.8 Other disorders of electrolyte and fluid balance, not elsewhere classified; I27.20 Pulmonary hypertension, unspecified; H40.9 Unspecified glaucoma; G89.29 Other chronic pain; D53.9 Nutritional anemia, unspecified; E87.5 Hyperkalemia; Z86.12 Personal history of poliomyelitis; Z85.3 Personal history of malignant neoplasm of breast; Z92.3 Personal history of irradiation; Z99.81 Dependence on supplemental oxygen; Z99.89 Dependence on other enabling machines and devices; Z90.49 Acquired absence of other specified parts of digestive tract; Z88.8 Allergy status to other drugs, medicaments and biological substances; Z91.040 Latex allergy status; Z79.01 Long term (current) use of anticoagulants; Z79.899 Other long term (current) drug therapy; Z23 Encounter for immunization
CPT/HCPCS: A4314; C1751; C9113; J0282; J0692; J1100; J1170; J1630; J1644; J1940; J2060; J2270; J2543; J2704; J2919; J3010; J3370; J7030; J7050; J7060; J7120; J8540